=== PATIENT | female | born 1960 | race Caucasian/White ===

== ENCOUNTER 2019-04-23 10:24 | Inpatient (IN) ==
[2019-04-23] MEDS ORDERED: Ipratropium/Albuterol Neb 3 ML IH ONE (10:40)
[2019-04-23] MEDS ORDERED: methylPREDNISolone 125 MG/2 ML VIAL IVP ONE (10:40)
[2019-04-23] MEDS ORDERED: levoFLOXacin 750 MG/150 ML 750 MG/150 ML BAG IVPB ONE (10:40)
[2019-04-23] MEDS ORDERED: Cefepime HCl 1,000 MG in Water for inj. (sterile) 10 ML IVP STA (10:43)
[2019-04-23 11:03] LABS: Basophils % 0.3 %; Eosinophils # 0.4 K/mcL (0.0-0.6); Eosinophils % 4.7 %; Hematocrit 37.2 % (35.3-44.9); Immature Granulocytes % 0.4 % (0-4); Lymphocytes # 1.2 K/mcL (0.6-4.6); Lymphocytes % 13.1 %; Mean Corpuscular HGB Conc 32.3 g/dL (31.6-35.5); Mean Platelet Volume 10.7 fL (9.4-12.4); Monocytes # 0.9 K/mcL (0.0-1.3); Monocytes % 9.5 %; Neutrophils # 6.6 K/mcL (1.6-8.9); Platelet Count 241 K/mcL (140-400); Red Cell Distribution Width 15.1 % (11.5-14.5); White Blood Count 9.2 K/mcL (4.3-11.1)
[2019-04-23 11:03] LABS: VBG HCO3 24 mEq/L (21-27); VBG PCO2 33 mmHg (41-51); VBG PH 7.47 pH Units (7.32-7.42); VBG PO2 197 mmHg (25-50)
--- NOTE | 2019-04-23 11:48 | Emergency Department Note ---
Disposition Clinical Impression: Community acquired pneumonia, Acute respiratory failure with hypoxia Disposition: Admitted As Inpatient Condition: Fair Time of Disposition: 14:24 General Adult HPI - General Chief complaint: ED Shortness of Breath/Dyspnea Stated complaint: Dyspnea Time Seen by Provider: 04/23/19 10:40 Source: patient, family Limitations: no limitations Nursing Notes Reviewed: Yes Vital Signs Reviewed: Yes - History of Present Illness HPI Narrative: 58-year-old female presented to the emergency department for shortness of breath. She was recently was admitted for a pneumonia. Said that she was admitted for approximately 2 days and then sent home on auction. Does have possible history of COPD was on 4 L oxygen at home. She is not been on any steroids. They did not send her home with any antibiotics they said this is all secondary to a viral pneumonia. Patient says that she has continue to get worse having more difficult time breathing well at home. Said that she does smoke her e and there but does not smoke regularly. Said that she slow down her smoking approximately 10 years ago. She has no chest pain. Disposition difficult time breathing is been no fevers or chills. She has not had any coughs or congestion and has not been coughing anything up. Pain Scale: 0 - Related Data Home Medications Medication Instructions Recorded Confirmed FLUoxetine HCl [Prozac] 80 mg PO DAILY 06/06/15 04/23/19 Cyanocobalamin (Vitamin B-12) 50 mcg PO DAILY 06/10/15 04/23/19 [Vitamin B-12] Vitamin D 1,000 mg PO DAILY 06/10/15 04/23/19 Gabapentin [Neurontin] 800 mg PO TID 04/20/19 04/23/19 Ibuprofen [Ibu] 800 mg PO TID 04/20/19 04/23/19 Lamotrigine [Lamictal (Blue)] 100 mg PO BID 04/20/19 04/23/19 Polyethylene Glycol 3350 [MiraLAX] 1 packet PO DAILY 04/20/19 04/23/19 Previous Rx's Medication Instructions Recorded ALPRAZolam [Xanax 0.5 MG Tablet] 0.5 mg PO Q6H PRN 3 Days #12 tablet 04/22/19 Albuterol Sulfate [Proair Hfa] 2 puff IH Q4H PRN #1 inh 04/22/19 Ascorbic Acid [Vitamin C] 500 mg PO DAILY@0630 #30 tablet 04/22/19 Ferrous Sulfate 325 mg PO DAILY@0630 #30 tablet 04/22/19 Allergies Allergy/AdvReac Type Severity Reaction Status Date / Time Penicillins Allergy Hives Verified 04/05/18 12:04 All systems ED: reviewed and negative except as stated. Review of Systems: As Per HPI Past Medical History - Past Medical History Attestation: Yes The following information was validated with the patient. Source: patient Medical history: Reports: arthritis, hypertension, seizures Surgical history: Reports: breast surgery Psychiatric history: Reports: anxiety, depression, panic disorder - Social History Smoking Status: Current every day smoker Smokeless Tobacco Status: No Alcohol use: Reports: none Drug use: Reports: none Physical Exam - General Limitations: no limitations General appearance: alert - Head Head exam: atraumatic, normocephalic, normal inspection - Eye Eye exam: Present: normal appearance, PERRL, EOMI - ENT ENT exam: normal exam, normal oropharynx, mucous membranes moist - Neck Neck exam: Present: normal inspection, full ROM, trachea midline - Chest Chest inspection: Present: normal inspection, symmetric chest wall rise - Respiratory Respiratory exam: Present: respiratory distress, wheezes, prolonged expiratory phase - Cardiovascular Cardiovascular exam: Present: normal rhythm, tachycardia, normal heart sounds - Abdominal Exam Abdominal exam: Present: soft, Non-Tender, normal bowel sounds. Absent: tenderness, distention, guarding, rebound, rigidity - Extremities Exam Extremities exam: Present: normal inspection, full ROM. Absent: tenderness, pedal edema - Back Exam Back exam: Present: normal inspection, full ROM. Absent: tenderness - Neurological Exam Neurological exam: Present: alert, oriented X3 - Skin Skin exam: Present: warm, dry, intact, normal color Course Course Narrative: When patient arrived she was having difficult time breathing was down to 80% while on 4 L Vioxx enough. Due to this we felt patient needed to be on BiPAP. BiPAP was started did give her albuterol treatments as well as she was very wheezy. Also gave her dose of Solu-Medrol. Patient also is recently been admitted to the hospital so we will treat her as hospital acquired pneumonia by giving cefepime, Levaquin, vancomycin. We will also get blood cultures. VBG lactate were also ordered. Other labs were ordered as well. Disposition will be admission for further evaluation Vital Signs Temperature 97.9 F 04/23/19 10:34 Pulse Rate 80 04/23/19 10:34 Respiratory Rate 38 04/23/19 10:34 Blood Pressure 130/85 04/23/19 10:34 O2 Sat by Pulse Oximetry 85 04/23/19 10:34 Temperature 97.9 F 04/23/19 10:34 Pulse Rate 63 04/23/19 14:18 Respiratory Rate 30 04/23/19 14:18 Blood Pressure 150/81 04/23/19 14:18 O2 Sat by Pulse Oximetry 94 04/23/19 14:18 Oxygen Delivery Oxygen Delivery Bipap Medical Decision Making - MDM Narrative Medical decision making narrative: Patient doing well on BiPAP. VBG in no acute findings there is no leukocytosis. CT of the chest did show possible pneumonia or possible pulmonary edema secondary cardiogenic. Did give patient Levaquin, cefepime, vancomycin for antibiotic coverage blood cultures were ordered per patient was never in severe sepsis or septic shock never needed the 30 mL/kg bolus. Spoke with the hospitalist Dr. Rothman who agreed to admit the patient to their service. Patient is admitted in stable condition Chest X-Ray 04/23/19 10:40 IMPRESSION: 1. Diffuse bilateral reticulation of the interstitium. Differential is broad and includes sequela ARDS, diffuse alveolar damage, and atypical infection. D/ / Feng Markham MD / Feng Markham MD Interpreting Provider: Feng Markham MD Chest CTA 04/23/19 11:55 IMPRESSION: No pulmonary emboli are identified. Crazy paving appearance to the lungs bilaterally, which is nonspecific though can be seen in the setting of cardiogenic pulmonary edema, multifocal diffuse interstitial pneumonia, as well as including but not limited to diffuse alveolar proteinosis and Pneumocystis carinii pneumonia. Lymphadenopathy seen in the mediastinum and hilar regions which is felt likely reactive in nature. No spiculated lung mass is identified. Recommend a follow-up CT scan of the chest in 2-3 months after recovery for re-evaluation. D/ / Nishant Stafford MD / Nishant Stafford MD Interpreting Provider: Nishant Stafford MD - Medical Records Medical records reviewed: Yes I reviewed the patient's medical records. - Lab Data Lab results reviewed: Yes I reviewed the patient's lab results. Result diagrams: 04/23/19 10:43 04/23/19 10:43 Lab Results 04/23/19 04/23/19 04/23/19 Range/Units 10:43 10:43 10:43 WBC 9.2 (4.3-11.1) K/mcL RBC 4.00 (3.82-4.97) M/mcL Hgb 12.0 (11.5-15.4) g/dL Hct 37.2 (35.3-44.9) % MCV 93.0 (83.0-100.0) fL MCH 30.0 (28.0-33.3) pg MCHC 32.3 (31.6-35.5) g/dL RDW 15.1 H (11.5-14.5) % Plt Count 241 (140-400) K/mcL MPV 10.7 (9.4-12.4) fL Immature Gran % 0.4 (0-4) % Seg Neutrophils % 72.0 % Lymphocytes % 13.1 % Monocytes % 9.5 % Eosinophils % 4.7 % Basophils % 0.3 % Neutrophils # 6.6 (1.6-8.9) K/mcL Lymphocytes # 1.2 (0.6-4.6) K/mcL Monocytes # 0.9 (0.0-1.3) K/mcL Eosinophils # 0.4 (0.0-0.6) K/mcL Basophils # 0.0 (0.0-0.2) K/mcL D-Dimer 1780 H (0-500) ng/mLFEU VBG pH (7.32-7.42) pH Units VBG pCO2 (41-51) mmHg VBG pO2 (25-50) mmHg VBG HCO3 (21-27) mEq/L Sodium 139 (136-145) mEq/L Potassium 3.8 (3.5-5.1) mEq/L Chloride 106 (98-107) mEq/L Carbon Dioxide 23 (23-29) mEq/L BUN 9 (6-20) mg/dL Creatinine 0.54 L (0.60-1.20) mg/dL Est GFR ( Amer) > 60 (> 60) Est GFR (Non-Af Amer) > 60 (> 60) BUN/Creatinine Ratio 17 (6-26) Glucose 100 (70-105) mg/dL Calculated Osmolality 287 (280-300) Lactic Acid (0.5-2.2) mmol/L Calcium 8.6 (8.6-10.3) mg/dL Troponin I < 0.03 (< 0.04) ng/mL B-Natriuretic Peptide (Less than 100) pg/mL Procalcitonin (0.00-0.15) ng/mL 04/23/19 04/23/19 04/23/19 Range/Units 10:43 10:43 10:43 WBC (4.3-11.1) K/mcL RBC (3.82-4.97) M/mcL Hgb (11.5-15.4) g/dL Hct (35.3-44.9) % MCV (83.0-100.0) fL MCH (28.0-33.3) pg MCHC (31.6-35.5) g/dL RDW (11.5-14.5) % Plt Count (140-400) K/mcL MPV (9.4-12.4) fL Immature Gran % (0-4) % Seg Neutrophils % % Lymphocytes % % Monocytes % % Eosinophils % % Basophils % % Neutrophils # (1.6-8.9) K/mcL Lymphocytes # (0.6-4.6) K/mcL Monocytes # (0.0-1.3) K/mcL Eosinophils # (0.0-0.6) K/mcL Basophils # (0.0-0.2) K/mcL D-Dimer (0-500) ng/mLFEU VBG pH (7.32-7.42) pH Units VBG pCO2 (41-51) mmHg VBG pO2 (25-50) mmHg VBG HCO3 (21-27) mEq/L Sodium (136-145) mEq/L Potassium (3.5-5.1) mEq/L Chloride (98-107) mEq/L Carbon Dioxide (23-29) mEq/L BUN (6-20) mg/dL Creatinine (0.60-1.20) mg/dL Est GFR ( Amer) (> 60) Est GFR (Non-Af Amer) (> 60) BUN/Creatinine Ratio (6-26) Glucose (70-105) mg/dL Calculated Osmolality (280-300) Lactic Acid 1.3 (0.5-2.2) mmol/L Calcium (8.6-10.3) mg/dL Troponin I (< 0.04) ng/mL B-Natriuretic Peptide 184 H (Less than 100) pg/mL Procalcitonin 0.03 (0.00-0.15) ng/mL 04/23/19 Range/Units 11:01 WBC (4.3-11.1) K/mcL RBC (3.82-4.97) M/mcL Hgb (11.5-15.4) g/dL Hct (35.3-44.9) % MCV (83.0-100.0) fL MCH (28.0-33.3) pg MCHC (31.6-35.5) g/dL RDW (11.5-14.5) % Plt Count (140-400) K/mcL MPV (9.4-12.4) fL Immature Gran % (0-4) % Seg Neutrophils % % Lymphocytes % % Monocytes % % Eosinophils % % Basophils % % Neutrophils # (1.6-8.9) K/mcL Lymphocytes # (0.6-4.6) K/mcL Monocytes # (0.0-1.3) K/mcL Eosinophils # (0.0-0.6) K/mcL Basophils # (0.0-0.2) K/mcL D-Dimer (0-500) ng/mLFEU VBG pH 7.47 H (7.32-7.42) pH Units VBG pCO2 33 L (41-51) mmHg VBG pO2 197 H (25-50) mmHg VBG HCO3 24 (21-27) mEq/L Sodium (136-145) mEq/L Potassium (3.5-5.1) mEq/L Chloride (98-107) mEq/L Carbon Dioxide (23-29) mEq/L BUN (6-20) mg/dL Creatinine (0.60-1.20) mg/dL Est GFR ( Amer) (> 60) Est GFR (Non-Af Amer) (> 60) BUN/Creatinine Ratio (6-26) Glucose (70-105) mg/dL Calculated Osmolality (280-300) Lactic Acid (0.5-2.2) mmol/L Calcium (8.6-10.3) mg/dL Troponin I (< 0.04) ng/mL B-Natriuretic Peptide (Less than 100) pg/mL Procalcitonin (0.00-0.15) ng/mL - Radiology Data Radiology results reviewed: Yes I reviewed the patient's radiology results. - EKG Data EKG #1 EKG attestation: Yes I reviewed and interpreted this EKG. EKG results narrative: EKG done at 1034 review myself and the attending shows sinus rhythm rate of 80, ND 143, QRS 91, QTC 457. There is no acute ST changes no acute T-wave changes no other signs of ischemia. No signs of hypertrophy, heart rate, heart block. No WPW/Brugada/HOCM. No changes based on old EKG done 04/20/19 Critical Care Time Critical Care Time: Yes Total Critical Care Time: 35 Attestation: See attestation Attestation Statement - Attestation Attestation: I examined this patient and my medical decision-making was reviewed with the Resident Physician. I agree with the documented findings, disposition and treatment plan as described except to the extent set forth below. Patient did have an EKG, do agree with the resident's interpretation of this EKG. Patient was placed on BiPAP on arrival secondary to hypoxia with nonrebreather. The patient however does not have significant acidosis. The patient however does have a diffuse pneumonia. This is very atypical appearance of a pneumonia. The patient was placed on broad-spectrum antibiotics here in the emergency room. Patient does not have severe respiratory distress after the BiPAP was placed. The patient has diminished breath sounds bilaterally on examination. She has no abdominal pain. Patient this point time is going to be admitted. CRITICAL CARE TIME OF 35 MINUTES PERFORMING THIS INDIVIDUAL OUTSIDE OF SEPARATELY BILLABLE PROCEDURES. THIS INCLUDES BEDSIDE EVALUATION, INTERPRETATION OF EKG AND LAB TESTS AND CONSULTATIONS.
[2019-04-23] MEDS ORDERED: Isovue-370 500 ML BOTTLE IVP ONE (11:55)
[2019-04-23 12:03] LABS: BUN/Creatinine Ratio 17 (6-26); Blood Urea Nitrogen 9 mg/dL (6-20); Calcium 8.6 mg/dL (8.6-10.3); Carbon Dioxide 23 mEq/L (23-29); Chloride 106 mEq/L (98-107); Glucose 100 mg/dL (70-105); Osmolality,Calculated 287 (280-300); Potassium 3.8 mEq/L (3.5-5.1); Sodium 139 mEq/L (136-145); Troponin I < 0.03 ng/mL (< 0.04); eGFR For African Americans > 60 (> 60); eGFR For Non-African Americans > 60 (> 60)
--- NOTE | 2019-04-23 15:26 | Internal Med History&Physical ---
Date of Encounter: 04/23/19 Time of Encounter: 15:26 Internal Medicine - H&P: HPI Chief complaint: shortness of breath History of present illness: Ms. Carranza is a 58 year old female with past medical history of seizures, hypertension, depression, possible COPD came in with complaint of shortness of breath. Patient was discharged from [facility] yesterday with 4 L nasal cannula for possibly underlying COPD. Recent had bilateral infiltrates at that time initially she was given antibiotics however not discharged given Pro calcitonin was negative. She had white count at the time however decreased to 15 on discharge. Respiratory infectious panel was negative. She was prescribed iron, vitamin C and Xanax on discharge on top of her baseline medication. Her l isinopril was stopped. She came back today with complain of increased shortness of breath. She is not on any steroid medication. She reported some smoking ER physician however to be she says she stopped smoking about 15 years ago and smoked for about 20 years about a pack. Has some central chest discomfort since her shortness of breath. Denies any fevers or chills. Had associated cough. Denies any abdominal pain, bowel or bladder complaints. Patient was evaluated in ER and she was given treatment for hospital-acquired pneumonia with cefepime and Levaquin and vancomycin as well as a dose of Solu- Medrol and breathing treatments. CT was obtained because of elevated d-dimer which showed trace keep having pattern with differential including cardiogenic pulmonary edema, interstitial pneumonia, diffuse alveolar proteinosis and Pneumocystis carinii pneumonia. Lymphadenopathy was seen in the mediastinum. Her VBG showed pH of 7.47, PCO2 33, PO2 197. She was kept on BiPAP. She impro milagros with BiPAP and was changed to facial mask. Admission was requested for further management. When patient was admitted with a creatinine ER by me patient was saturating well on simple mask. Had some cough. Breathing has improved and has mild cough and some chest discomfort. Denies any other c omplain as above. Denies any sick contacts. Has 2 dogs at home. 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 Past Med Surg Social Fam HX - Past Medical History Medical history: arthritis, hypertension, seizures Additional medical history: last seizure march 2018 Psychiatric history: anxiety, depression, panic disorder - Past Surgical History Surgical History: breast surgery Additional surgical history: gastric bypass. metal plates to rt side ribs - Social History Smoking Status: Current every day smoker Smokeless Tobacco Status: No Alcohol use: none Drug use: none - Additional Family History Additional family history: No significant cancer hisotory in family, No sick contact Internal Medicine - H&P: Meds FLUoxetine HCl [Prozac] 80 mg PO DAILY 06/06/15 [History] Cyanocobalamin (Vitamin B-12) [Vitamin B-12] 50 mcg PO DAILY 06/10/15 [History] Vitamin D 1,000 mg PO DAILY 06/10/15 [History] Gabapentin [Neurontin] 800 mg PO TID 04/20/19 [History] Ibuprofen [Ibu] 800 mg PO TID 04/20/19 [History] Lamotrigine [Lamictal (Blue)] 100 mg PO BID 04/20/19 [History] Polyethylene Glycol 3350 [MiraLAX] 1 packet PO DAILY 04/20/19 [History] ALPRAZolam [Xanax 0.5 MG Tablet] 0.5 mg PO Q6H PRN 3 Days #12 tablet 04/22/19 [Rx] Albuterol Sulfate [Proair Hfa] 2 puff IH Q4H PRN #1 inh 04/22/19 [Rx] Ascorbic Acid [Vitamin C] 500 mg PO DAILY@0630 #30 tablet 04/22/19 [Rx] Ferrous Sulfate 325 mg PO DAILY@0630 #30 tablet 04/22/19 [Rx] Allergy/AdvReac Type Severity Reaction Status Date / Time Penicillins Allergy Hives Verified 04/05/18 12:04 All Systems PM: A 10-system review of systems was performed and is negative for pertinent fi ndings except as documented above in the HPI. - Constitutional Vitals: Temp Pulse Resp BP Pulse Ox 97.9 F 63 30 150/81 94 04/23/19 10:34 04/23/19 14:18 04/23/19 14:18 04/23/19 14:18 04/23/19 14:18 Exam: Constitutional: Vitals as noted. Conversant. coughing Eyes : Sclera white, conjunctiva clear, no lid lag, PEARLA. ENT : Grossly normal hearing. Oropharyngeal exam unremarkable. No JVD, no cervical lymphadenopathy. no thyromegaly or mass. Respiratory : mild accessory muscle use. rhonchi, wheezing diffusely. Cardiovascular : RRR, +S1, +S2. no murmur, gallop, rubs. No chest wall tenderness GI/Abdominal : Soft, Non-tender, Non-distended, normal bowel sounds, no periton eal signs. no orgenomegaly or mass appreciated. no hernia. Musculoskeletal: no deformity noted. no edema or cyanosis. warm extremities, pulses palpable and symmetrical in UE/LE. no calf tenderness. Neurological: AO X3, CN II-XII grossly intact, grossly normal motor and sensory exam. Skin: No skin rash, lesions or ulcers noted. Pych: Good insight and judgement. Intact memory. AOx3. Internal Med - H&P Results - Labs CBC & Chem 7: 04/23/19 10:43 04/23/19 10:43 Labs: Short CBC 04/23/19 Range/Units 10:43 WBC 9.2 (4.3-11.1) K/mcL Hgb 12.0 (11.5-15.4) g/dL Hct 37.2 (35.3-44.9) % Plt Count 241 (140-400) K/mcL Neutrophils # 6.6 (1.6-8.9) K/mcL BMP 04/23/19 10:43 Sodium 139 Potassium 3.8 Chloride 106 Carbon Dioxide 23 BUN 9 Creatinine 0.54 L Glucose 100 Calcium 8.6 Cardiac Enzymes 04/23/19 Range/Units 10:43 Troponin I < 0.03 (< 0.04) ng/mL - ABG Interpretation ABG results: 04/23/19 11:01 VBG pH 7.47 H VBG pCO2 33 L VBG pO2 197 H VBG HCO3 24 - EKG Data -: EKG Interpreted by Myself EKG shows normal: sinus rhythm - Impressions ITS Impressions Chest X-Ray 04/23/19 10:40 IMPRESSION: 1. Diffuse bilateral reticulation of the interstitium. Differential is broad and includes sequela ARDS, diffuse alveolar damage, and atypical infection. D/ / Feng Markham MD / Feng Markham MD Interpreting Provider: Feng Markham MD Chest CTA 04/23/19 11:55 IMPRESSION: No pulmonary emboli are identified. Crazy paving appearance to the lungs bilaterally, which is nonspecific though can be seen in the setting of cardiogenic pulmonary edema, multifocal diffuse interstitial pneumonia, as well as including but not limited to diffuse alveolar proteinosis and Pneumocystis carinii pneumonia. Lymphadenopathy seen in the mediastinum and hilar regions which is felt likely reactive in nature. No spiculated lung mass is identified. Recommend a follow-up CT scan of the chest in 2-3 months after recovery for re-evaluation. D/ / Nishant Stafford MD / Nishant Stafford MD Interpreting Provider: Nishant Stafford MD - Assessment and Plan (1) Acute respiratory failure with hypoxia Current Visit: Yes Status: Acute Assessment and plan: Patient has crazy pavement appearance on CT scan. Unclear exact etiology. Appears to be less likely be infectious in nature. Patient without white count, negative for calcitonin, recent negative respiratory infectious panel. We will obtain urinary antigen. Patient already received cefepime, Levaquin and vancomycin. We will keep on empiric levaquin for now. Obtain an MRSA screening. Previous blood cultures are negative. Legionella antigen was negative. Will likely de-escalate after pulmonology evaluation. Obtain HIV although she does not have any risk factors Denies any vaping or smoking currently. Patient may have some underlying COPD from her previous smoking habits. Continue patient on supplemental oxygen and as needed BiPAP. Obtain ABG. Obtain echocardiogram to rule out for cardiac causes. Troponin and EKG unremarkable. We will consult pulmonology for additional input and assistance Patient is full code (2) Depression Current Visit: Yes Status: Acute Assessment and plan: Continue home fluoxetine Qualifiers: Depression Type: unspecified Qualified Code(s): F32.9 - Major depressive disorder, single episode, unspecified (3) Hypertension Current Visit: No Status: Acute Assessment and plan: Hold antihypertensives for now. Qualifiers: Hypertension type: essential hypertension Qualified Code(s): I10 - Essential (primary) hypertension (4) Seizure disorder Current Visit: No Status: Acute Assessment and plan: Continue home antiepileptics. - Time Spent With Patient Total time spent is greater than 50% in coordination of care (as documented) at patient's floor/unit and/or counseling patient:
[2019-04-23] MEDS ORDERED: Furosemide 20 MG/2 ML VIAL IVP ONE (15:40)
[2019-04-23 16:14] LABS: ABG Base Excess 1 mEq/L (-2 to 3); ABG HCO3 26 mEq/L (21-27); ABG Oxygen Saturation 96 % (95-98); ABG PCO2 40 mmHg (35-45); ABG PH 7.41 pH Units (7.32-7.45); ABG PO2 83 mmHg (85-104); ABG TCO2 27 mEq/L (20-26)
--- NOTE | 2019-04-23 17:30 | Electrocardiograph Report ---
[address] [place], [place] [address] Test Date: 2019-04-23 Pat Name: Kathia Carranza Department: [id number] Room: [facility] Gender: F Silk Soaker: : 1960 Requested By: Ramiro García Order Number: [id number] Reading MD: Nuris Alexander Measurements Intervals [place] Rate: 80 P: 75 DC: 143 QRS: 48 QRSD: 91 T: 44 QT: 396 QTc: 457 Interpretive Statements Sinus rhythm Left atrial enlargement Electronically Signed On 04-23-2019 17:29:27 EDT by Nuris Alexander
[2019-04-23] MEDS: Acetaminophen 325 MG TABLET PO PRN (17:31)
[2019-04-23] MEDS: Doxycycline 100 MG in 0.9 % Sodium Chloride Mini Bag 100 ML IVPB SCH (18:10)
--- NOTE | 2019-04-23 19:56 | Pulmonology Consult Note ---
Date of Encounter: 04/23/19 Time of Encounter: 17:00 Assessment and Plan (1) Acute respiratory failure with hypoxia Current Visit: Yes Status: Acute Patient presenting with acute hypoxic respiratory failure with significant bilateral groundglass opacities with significant [place] pavement appearance with mediastinal hilar lymphadenopathy as well as likely reactive looks like unresolved interstitial pneumonia. Patient had this findings in the month of December in the CT scan she never followed up with pulmonary at that point. Patient has acceptable oxygenation and ventilation now patient initially on BiPAP then transitioned her to nasal cannula. To continue oxygen supplementation to continue regular bronchodilator, Lasix twice a day. Patient is clinically stable we will repeat the blood gas and energy management specialist. (2) Pneumonitis Current Visit: Yes Status: Acute Patient has significant daytime bilateral groundglass opacities with carzy pavement . appearance which is suggestive of in regards intralobular and lymphatics. The differential diagnosis for groundglass opacities with the patient Appearance the most common cause is a bacterial pneumonia, atypical pneumonia like mycoplasma or Legionella. Other causes that is producing this is a imaging finding as alveolar proteinosis, acute on chronic interstitial lung disease low likelihood for acute interstitial pneumonitis. Patient had both the bilateral upper and lower lobe affected mostly consistent with a diffuse process. This can be due to sarcoidosis presentation. It can be smoking-related interstitial lung disease like respiratory bronchiolitis and desaquamative interstitial pneumonitis. This can be a pattern often nonspecific interstitial pneumonitis or granulomatous pneumonitis acute on chronic hypersensitivity pneumonitis can be a diabetic presentation of sarcoidosis. With a background of lymphade nopathy. We will keep him we will keep her nothing by mouth for possible bronchoscopy if she has adequately treated . (3) Pneumonia Current Visit: Yes Status: Acute Can be due to pneumonia unspecified organs will consider bronchoscopy with bronchial alveolar lavage possible left transbronchial biopsy. To continue the atypical coverage with the doxycycline. Qualifiers: Pneumonia type: due to unspecified organism Laterality: bilateral Lung location: unspecified part of lung Qualified Code(s): J18.9 - Pneumonia, un specified organism History of Present Illness Consult date: 04/23/19 Requesting physician: Radha Bowens Reason for consult: pneumonia, abnormal CXR/CT Chief complaint: shortness of breadth History of present illness: 58-year-old female with past medical history of hypertension, hyperlipidemia, diabetes had bilateral diffuse alveolar infiltrates in month of December patient was given outpatient and antibiotic. Patient coming with worsening shortness of breath and chest pain chest tightness as denies any palpitations syncope. Patient denies any active GERD or neuro symptoms. Patient had this diagnosis of bilateral diffuse interstitial infiltrates in a month of December was sent home on oxygen patient says her shortness of breath almost the came to her baseline episodically she will have worsening shortness of breath patient denies any fever or chills denies any constitutional symptoms denies any headache denies any eye symptoms of skin symptoms patient denies any rash in the skin. Patient denies any active focal neurological deficit pulmonary was consult for acute hypoxic respiratory failure with abnormal CT scan which showed groundglass opa cities and crazy pavement pattern . Past Med Surg Social Fam HX - Past Medical History Medical history: arthritis, hypertension, seizures Additional medical history: last seizure march 2018 Psychiatric history: anxiety, depression, panic disorder - Past Surgical History Surgical History: breast surgery Additional surgical history: gastric bypass. metal plates to rt side ribs - Social History Smoking Status: Current every day smoker Smokeless Tobacco Status: No Alcohol use: none Drug use: none Medications and Allergies FLUoxetine HCl [Prozac] 80 mg PO DAILY 06/06/15 [History] Cholecalciferol (D-3) [Vitamin D] 1,000 unit PO DAILY #0 06/10/15 [History] Cyanocobalamin (Vitamin B-12) [Vitamin B-12] 50 mcg PO DAILY 06/10/15 [History] Gabapentin [Neurontin] 800 mg PO TID 04/20/19 [History] Ibuprofen [Ibu] 800 mg PO TID PRN 04/20/19 [History] Lamotrigine [Lamictal (Blue)] 100 mg PO BID 04/20/19 [History] Ferrous Sulfate 325 mg PO DAILY@0630 #30 tablet 04/22/19 [Rx] Estradiol 2 mg PO DAILY 04/23/19 [History] Lisinopril [Zestril] 20 mg PO DAILY 04/23/19 [History] Trazodone HCl 150 mg PO HS PRN 04/23/19 [History] Allergy/AdvReac Type Severity Reaction Status Date / Time Penicillins Allergy Hives Verified 04/05/18 12:04 All Systems: The remainder of the systems were reviewed and are negative Physical Examination Vital Signs: Vital Signs, Last 4 Hours Temp Pulse Resp BP Pulse Ox 04/23/19 19:52 98.9 F 78 15 124/89 83 Results - Laboratory Findings CBC and BMP: 04/23/19 10:43 04/23/19 10:43 ABG ABG pH 7.41 pH Units (7.32-7.45) 04/23/19 16:10 ABG pCO2 40 mmHg (35-45) 04/23/19 16:10 ABG pO2 83 mmHg (85-104) L 04/23/19 16:10 ABG O2 Saturation 96 % (95-98) 04/23/19 16:10 PT/INR, D-dimer D-Dimer 1780 ng/mLFEU (0-500) H 04/23/19 10:43 Abnormal lab findings: Abnormal lab results RDW 15.1 % (11.5-14.5) H 04/23/19 10:43 D-Dimer 1780 ng/mLFEU (0-500) H 04/23/19 10:43 ABG pO2 83 mmHg (85-104) L 04/23/19 16:10 ABG Total CO2 27 mEq/L (20-26) H 04/23/19 16:10 VBG pH 7.47 pH Units (7.32-7.42) H 04/23/19 11:01 VBG pCO2 33 mmHg (41-51) L 04/23/19 11:01 VBG pO2 197 mmHg (25-50) H 04/23/19 11:01 Creatinine 0.54 mg/dL (0.60-1.20) L 04/23/19 10:43 B-Natriuretic Peptide 184 pg/mL (Less than 100) H 04/23/19 10:43 - Microbiology Findings Microbiology Findings: Microbiology, Last 48 Hours 04/23/19 10:43 Blood Culture - Preliminary Peripheral Venipuncture Culture is incubating and being continuously monitored for growth. Final report to follow. 04/23/19 10:43 Blood Culture - Preliminary Peripheral Venipuncture Culture is incubating and being continuously monitored for growth. Final report to follow. - Clinical Findings Intake & Output: Intake & Output 04/23/19 04/23/19 04/23/19 07:59 15:59 23:59 Intake Total 400 / 410 10 / 410 Balance 400 / 410 10 / 410 Weight 64.9 kg Consult Discharge Plan - Plan Referrals: Damari Ponce, CHARITY [Primary Care Provider] -
[2019-04-23] MEDS ORDERED: *HR* LORazepam 2 MG/ML VIAL IVP ONE (20:05)
[2019-04-23] MEDS: Gabapentin 400 MG CAPSULE PO SCH (20:47)
[2019-04-23] MEDS: lamoTRIgine 100 MG TABLET PO SCH (21:07)
[2019-04-24 04:41] LABS: ABG Base Excess 8 mEq/L (-2 to 3); ABG HCO3 33 mEq/L (21-27); ABG Oxygen Saturation 91 % (95-98); ABG PCO2 45 mmHg (35-45); ABG PH 7.47 pH Units (7.32-7.45); ABG PO2 57 mmHg (85-104); ABG TCO2 34 mEq/L (20-26); Blood Gas PEEP 5 cm H2O
[2019-04-24 04:57] LABS: Basophils % 0.2 %; Eosinophils # 0.1 K/mcL (0.0-0.6); Eosinophils % 0.5 %; Hematocrit 40.8 % (35.3-44.9); Hemoglobin 13.3 g/dL (11.5-15.4); Immature Granulocytes % 0.6 % (0-4); Lymphocytes % 15.5 %; Mean Corpuscular HGB Conc 32.6 g/dL (31.6-35.5); Mean Corpuscular Hemoglobin 29.9 pg (28.0-33.3); Mean Corpuscular Volume 91.7 fL (83.0-100.0); Mean Platelet Volume 11.4 fL (9.4-12.4); Monocytes # 1.2 K/mcL (0.0-1.3); Monocytes % 9.5 %; Neutrophils # 9.5 K/mcL (1.6-8.9); Platelet Count 260 K/mcL (140-400); Red Blood Count 4.45 M/mcL (3.82-4.97); Red Cell Distribution Width 14.6 % (11.5-14.5); Segmented Neutrophils % 73.7 %; White Blood Count 12.9 K/mcL (4.3-11.1)
[2019-04-24 05:04] LABS: INR 1.2; Prothrombin Time 13.6 Seconds (9.4-12.1)
[2019-04-24 05:18] LABS: BUN/Creatinine Ratio 26 (6-26); Blood Urea Nitrogen 16 mg/dL (6-20); Calcium 9.1 mg/dL (8.6-10.3); Carbon Dioxide 28 mEq/L (23-29); Chloride 102 mEq/L (98-107); Glucose 99 mg/dL (70-105); Magnesium 1.7 mg/dL (1.6-2.6); Osmolality,Calculated 291 (280-300); Potassium 3.6 mEq/L (3.5-5.1); Sodium 140 mEq/L (136-145); Troponin I < 0.03 ng/mL (< 0.04); eGFR For African Americans > 60 (> 60); eGFR For Non-African Americans > 60 (> 60)
[2019-04-24] MEDS: Doxycycline 100 MG in 0.9 % Sodium Chloride Mini Bag 100 ML IVPB SCH ×2 (06:06→17:14)
[2019-04-24] MEDS: lamoTRIgine 100 MG TABLET PO SCH ×2 (08:07→20:38)
[2019-04-24] MEDS: Gabapentin 400 MG CAPSULE PO SCH ×3 (08:07→20:38)
[2019-04-24] MEDS: FLUoxetine 20 MG CAPSULE PO SCH (08:08)
[2019-04-24] MEDS ORDERED: methylPREDNISolone 125 MG/2 ML VIAL IVP SCH ×2 (09:00→20:00)
[2019-04-24] MEDS ORDERED: levoFLOXacin 750 MG/150 ML 750 MG/150 ML BAG IVPB SCH (09:00)
--- NOTE | 2019-04-24 09:50 | Pulmonology Progress Note ---
Date of Encounter: 04/24/19 Time of Encounter: 09:00 Assessment and Plan (1) Acute respiratory failure with hypoxia Current Visit: Yes Status: Acute Patient with acute respiratory failure with hypoxia most likely V/Q mismatch is secondary to this chronic interstitial pneumonitis pattern with [place] pavement appearance with groundglass opacities some consolidative opacities. This changes are chronic in the CT scan most likely is inflammatory in the smoking- related interstitial lung disease or eosinophilic pneumonitis or hypersensitivity pneumonitis the workup is pending. (2) Pneumonitis Current Visit: Yes Status: Acute Differential are days climate of interstitial pneumonitis versus nonspecific interstitial pneumonitis versus eosinophilic pneumonitis vs infectious vs pulmonary alveolar proteinosis. Patient will need Bronchoscopy with BAL and transbronchial biopsy . (3) Pneumonia Current Visit: Yes Status: Acute Atypical pneumonia can cause this picture will cover with the atypical antibiotics will do negative for procalcitonin looks like more of any inflammatory pneumonitis. Echocardiogram was grossly normal no evidence of cardiogenic pulmonary edema. Qualifiers: Pneumonia type: due to unspecified organism Laterality: bilateral Lung location: unspecified part of lung Qualified Code(s): J18.9 - Pneumonia, unspecified organism Subjective Principal diagnosis: pneumonitis Interval history: 58-year-old female is here for evaluation for his acute hypoxic respiratory failure secondary to chronic interstitial pneumonitis pattern which was found in December 2018 patient slowly getting better patient is on 5 L nasal cannula. Patient denies any chest pain chest tightness denies any palpitation or syncope patient has some cough And sputum production denies any hemoptysis. Objective PUL Vital signs: Last Vital Signs Temp 98.1 F 04/24/19 07:27 Pulse 57 04/24/19 07:27 Resp 16 04/24/19 07:27 BP 129/86 04/24/19 07:27 Pulse Ox 95 04/24/19 07:27 General appearance: no acute distress Effort: mildly labored Auscultation: bilateral: rales Cardiovascular: regular rate and rhythm Gastrointestinal: normoactive bowel sounds Extremities: no cyanosis, no edema Musculoskeletal: no deformities normal mental status, non-focal exam mood appropriate Results - Laboratory Findings CBC and BMP: 04/24/19 04:18 04/24/19 04:18 ABG ABG pH 7.47 pH Units (7.32-7.45) H 04/24/19 04:38 ABG pCO2 45 mmHg (35-45) 04/24/19 04:38 ABG pO2 57 mmHg (85-104) L 04/24/19 04:38 ABG O2 Saturation 91 % (95-98) L 04/24/19 04:38 PT/INR, D-dimer PT 13.6 Seconds (9.4-12.1) H 04/24/19 04:18 D-Dimer 1780 ng/mLFEU (0-500) H 04/23/19 10:43 Abnormal lab findings: Abnormal lab results WBC 12.9 K/mcL (4.3-11.1) H 04/24/19 04:18 RDW 14.6 % (11.5-14.5) H 04/24/19 04:18 Neutrophils # 9.5 K/mcL (1.6-8.9) H 04/24/19 04:18 PT 13.6 Seconds (9.4-12.1) H 04/24/19 04:18 D-Dimer 1780 ng/mLFEU (0-500) H 04/23/19 10:43 ABG pH 7.47 pH Units (7.32-7.45) H 04/24/19 04:38 ABG pO2 57 mmHg (85-104) L 04/24/19 04:38 ABG HCO3 33 mEq/L (21-27) H 04/24/19 04:38 ABG Total CO2 34 mEq/L (20-26) H 04/24/19 04:38 ABG O2 Saturation 91 % (95-98) L 04/24/19 04:38 ABG Base Excess 8 mEq/L (-2 to 3) H 04/24/19 04:38 VBG pH 7.47 pH Units (7.32-7.42) H 04/23/19 11:01 VBG pCO2 33 mmHg (41-51) L 04/23/19 11:01 VBG pO2 197 mmHg (25-50) H 04/23/19 11:01 Creatinine 0.54 mg/dL (0.60-1.20) L 04/23/19 10:43 C-Reactive Protein 94 mg/L (Less than 10) H 04/24/19 04:18 B-Natriuretic Peptide 184 pg/mL (Less than 100) H 04/23/19 10:43 - Microbiology Findings Microbiology Findings: Microbiology, Last 48 Hours 04/24/19 06:27 Legionella Antigen - Final Urine,Clean Catch 04/24/19 06:27 Streptococcus pneumoniae Antigen (M - Final Urine,Clean Catch 04/23/19 10:43 Blood Culture - Preliminary Peripheral Venipuncture Culture is incubating and being continuously monitored for growth. Final report to follow. 04/23/19 10:43 Blood Culture - Preliminary Peripheral Venipuncture Culture is incubating and being continuously monitored for growth. Final report to follow. - Clinical Findings Intake & Output: Intake & Output 04/23/19 04/24/19 04/24/19 23:59 07:59 15:59 Intake Total 110 / 510 100 / 100 Output Total 750 / 750 Balance 110 / 510 -650 / -650 Weight 64 kg Consult Discharge Plan - Plan Referrals: Damari Ponce, MICROFILM PROCESSOR [Primary Care Provider] -
[2019-04-24] MEDS: MethylPREDNISolone 40 MG/ML VIAL IVP SCH ×3 (11:59→22:57)
--- NOTE | 2019-04-24 13:34 | Internal Med Progress Note ---
Hospitalist Progress Note - Encounter Date of Encounter: 04/24/19 Time of Encounter: 09:32 - Subjective Interval History: Patient seen and examined this morning because her. No acute overnight events. Patient says her breathing improved. Denies any chest pain nausea vomiting diarrhea. Denies any abdominal pain. - Exam Vitals: Temp Pulse Resp BP Pulse Ox 98.1 F 65 16 124/68 91 04/24/19 07:27 04/24/19 11:52 04/24/19 11:52 04/24/19 11:52 04/24/19 11:52 Exam: Constitutional: Vitals as noted. Conversant. coughing Respiratory : mild accessory muscle use. rhonchi, wheezing diffusely. Cardiovascular : RRR, +S1, +S2. no murmur, gallop, rubs. No chest wall tenderness GI/Abdominal : Soft, Non-tender, normal bowel sounds, no peritoneal signs. Musculoskeletal: no edema or cyanosis. warm extremities, pulses palpable and symmetrical in UE/LE. no calf tenderness. Neurological: AO X3, CN II-XII grossly intact, grossly normal motor and sensory exam. Skin: No skin rash, lesions or ulcers noted. - Assessment and Plan (1) Acute respiratory failure with hypoxia Current Visit: Yes Status: Acute (2) Depression Current Visit: Yes Status: Acute (3) Hypertension Current Visit: No Status: Acute (4) Seizure disorder Current Visit: No Status: Acute - Summary of Assessment and Plan Summary of Assessment and Plan: Assessment Acute Acute hypoxic respiratory failure Pneumonitis Chronic Depression HTN Seizure disorder Tobacco use Plan - Patient came with acute hypoxic respiratory failure with crazy pavement appearance on CT scan. Patient improved with BiPAP and Lasix. Pulmonology consulted. Etiology unclear at this point. Troponin and EKG unremarkable. Echocardiogram pending. Appears to be less likely be infectious in nature however will continue doxycycline for now(received cefepime, Levaquin and vancomycin in the ER). Patient without white count, negative for calcitonin, recent negative respiratory infectious panel. Previous blood cultures are negative. Denies any vaping history but does on and off smoke. Continue when necessary BiPAP. ABG this morning is slight respiratory alkalosis. Continue supplemental oxygen for hypoxia. May have some underlying COPD from her previous smoking habits. We will continue patient on Lasix, steroids and empiric antibiotics for now. multiple differential and a desaturation including pneumonia, alveolar proteinosis, interstitial lung disease, interstitial pneumonitis. per Pulmonology smoking-related ILD like respiratory bronchiolitis and his Coumadin interstitial pneumonitis possibility. Bronchoscopy would be delayed as Echo still not reported. - Continue home fluoxetine - Continue home antiepileptics. - EPCD for DVT ppx. Internal Medicine: Result - Labs CBC & Chem 7: 04/24/19 04:18 04/24/19 04:18 Labs: Short CBC 04/24/19 Range/Units 04:18 WBC 12.9 H (4.3-11.1) K/mcL Hgb 13.3 (11.5-15.4) g/dL Hct 40.8 (35.3-44.9) % Plt Count 260 (140-400) K/mcL Neutrophils # 9.5 H (1.6-8.9) K/mcL BMP 04/24/19 04:18 Sodium 140 Potassium 3.6 Chloride 102 Carbon Dioxide 28 BUN 16 Creatinine 0.61 Glucose 99 Calcium 9.1 Cardiac Enzymes 04/24/19 Range/Units 04:18 Troponin I < 0.03 (< 0.04) ng/mL - ABG Interpretation ABG results: ABG ABG pH 7.47 pH Units (7.32-7.45) H 04/24/19 04:38 ABG pCO2 45 mmHg (35-45) 04/24/19 04:38 ABG pO2 57 mmHg (85-104) L 04/24/19 04:38 ABG O2 Saturation 91 % (95-98) L 04/24/19 04:38 PT/INR, D-dimer PT 13.6 Seconds (9.4-12.1) H 04/24/19 04:18 D-Dimer 1780 ng/mLFEU (0-500) H 04/23/19 10:43 - Impressions Impressions Echocardiogram 04/23/19 15:38 Impressions: Technically sub-optimal due to poor echocardiographic windows related to breast implants. LVEF 60-65%. Normal LV chamber size, wall thickness and function. Diastolic probably normal. E/A >0.8, TR velocity < 2.8 m/s, normal LA pressure suggests normal diastolic function. Tissue Doppler suboptimal, obscured visualization of MV annulus. Normal right ventricular structure and function. No evidence of pulmonary hypertension. No significant valvular dysfunction. Findings: Study Quality * Technically sub-optimal due to poor echocardiographic windows related to breast implants. ECG Findings * Normal sinus rhythm. Left Ventricle * LVEF 60-65%. * Normal LV chamber size, wall thickness, and function. * Diastolic probably normal. E/A >0.8, TR velocity < 2.8 m/s, normal LA pressure suggests normal diastolic function. Tissue Doppler suboptimal, obscured visiualization of MV annulus. Right Ventricle * Normal right ventricular structure and function. Left Atrium * Left atrium is not well visualized. Right Atrium * Right atrium is not well visualized. Interatrial Septum * Interatrial septum not well evaluated. Aortic Valve * Trileaflet aortic valve. * Mildly sclerotic aortic valve leaflets. * No aortic regurgitation. * No aortic stenosis. Mitral Valve * Normal mitral valve structure and function. * No mitral regurgitation. * No mitral stenosis. Tricuspid Valve * Normal tricuspid valve structure and function. * Trace tricuspid regurgitation. * No evidence of pulmonary hypertension. Pulmonic Valve * Normal pulmonic valve structure and function. * Trace pulmonic regurgitation. Aorta * Normally sized aortic root. Pericardium * There is a trivial pericardial effusion present. IVC * Normal IVC dimensions and inspiratory collapse. Pulmonary Artery * Normal visualized portions of the main pulmonary artery. Consult Discharge Plan - Plan Referrals: Damari Ponce, OPERATIONAL ASSISTANT [Primary Care Provider] - (2) Depression Qualifiers: Depression Type: unspecified Qualified Code(s): F32.9 - Major depressive disorder, single episode, unspecified (3) Hypertension Qualifiers: Hypertension type: essential hypertension Qualified Code(s): I10 - Essential (primary) hypertension
[2019-04-24] MEDS ORDERED: Furosemide 20 MG/2 ML VIAL IVP ONE (15:00)
[2019-04-25] MEDS: Furosemide 20 MG/2 ML VIAL IVP SCH ×3 (00:27→21:40)
[2019-04-25] MEDS: Doxycycline 100 MG in 0.9 % Sodium Chloride Mini Bag 100 ML IVPB SCH ×2 (06:25→17:19)
--- NOTE | 2019-04-25 08:06 | Internal Med Progress Note ---
Hospitalist Progress Note - Encounter Date of Encounter: 04/25/19 Time of Encounter: 08:06 - Subjective Interval History: Patient seen and examined this morning at bedside. No acute overnight events. Patient breathing improved. Denies any chest pain nausea vomiting or diarrhea. - Exam Vitals: Temp Pulse Resp BP Pulse Ox 98.1 F 65 18 112/70 95 04/24/19 23:16 04/25/19 07:13 04/25/19 07:13 04/25/19 07:13 04/25/19 07:13 Exam: Constitutional: Vitals as noted. Conversant. Respiratory : mild accessory muscle use. rhonchi, wheezing diffusely. Cardiovascular : RRR, +S1, +S2. no murmur, gallop, rubs. No chest wall tenderness GI/Abdominal : Soft, Non-tender, normal bowel sounds, no peritoneal signs. Musculoskeletal: no edema or cyanosis. warm extremities, pulses palpable and symmetrical in UE/LE. no calf tenderness. Neurological: AO X3, CN II-XII grossly intact, grossly normal motor and sensory exam. Skin: No skin rash, lesions or ulcers noted. - Assessment and Plan (1) Acute respiratory failure with hypoxia Current Visit: Yes Status: Acute (2) Depression Current Visit: Yes Status: Acute (3) Hypertension Current Visit: No Status: Acute (4) Seizure disorder Current Visit: No Status: Acute - Summary of Assessment and Plan Summary of Assessment and Plan: Assessment Acute Acute hypoxic respiratory failure Pneumonitis Respiratory alkalosis Chronic Depression HTN Seizure disorder Tobacco use Plan - Patient came with acute hypoxic respiratory failure with crazy pavement appearance on CT scan. Patient improved with BiPAP, steroid and Lasix. Pulmonology following. Etiology unclear at this point. Troponin and EKG unremarkable. Echocardiogram with preserved EF. Appears to be less likely be infectious in nature however will continue doxycycline for now per pulmonology(received cefepime, Levaquin and vancomycin in the ER). Patient without white count, negative procalcitonin, recent negative respiratory infectious panel. Previous blood cultures are negative. Denies any vaping history but does on and off smoke. Continue pnr BiPAP and supplemental oxygen for hypoxia. May have some underlying COPD from her previous smoking habits. c/w Lasix, steroids and empiric antibiotics for now. per Pulmonology possibly smoking-related ILD or eosinophillic pnemonitis or hypersensitivity pneumonitis. Plan for bronchscopy today. Pending histoplasma, VINNIE, anca ab, fungal and mycoplasma testing. - Continue home fluoxetine - Continue home antiepileptics. - EPCD for DVT ppx. - Time Spent with Patient Total time spent is greater than 50% in coordination of care (as documented) at patient's floor/unit and/or counseling patient: Internal Medicine: Result - Labs CBC & Chem 7: 04/24/19 04:18 04/24/19 04:18 - ABG Interpretation ABG results: ABG ABG pH 7.47 pH Units (7.32-7.45) H 04/24/19 04:38 ABG pCO2 45 mmHg (35-45) 04/24/19 04:38 ABG pO2 57 mmHg (85-104) L 04/24/19 04:38 ABG O2 Saturation 91 % (95-98) L 04/24/19 04:38 PT/INR, D-dimer PT 13.6 Seconds (9.4-12.1) H 04/24/19 04:18 D-Dimer 1780 ng/mLFEU (0-500) H 04/23/19 10:43 - Impressions Impressions Echocardiogram 04/23/19 15:38 Impressions: Technically sub-optimal due to poor echocardiographic windows related to breast implants. LVEF 60-65%. Normal LV chamber size, wall thickness and function. Diastolic probably normal. E/A >0.8, TR velocity < 2.8 m/s, normal LA pressure suggests normal diastolic function. Tissue Doppler suboptimal, obscured visualization of MV annulus. Normal right ventricular structure and function. No evidence of pulmonary hypertension. No significant valvular dysfunction. Findings: Study Quality * Technically sub-optimal due to poor echocardiographic windows related to breast implants. ECG Findings * Normal sinus rhythm. Left Ventricle * LVEF 60-65%. * Normal LV chamber size, wall thickness, and function. * Diastolic probably normal. E/A >0.8, TR velocity < 2.8 m/s, normal LA pressure suggests normal diastolic function. Tissue Doppler suboptimal, obscured visiualization of MV annulus. Right Ventricle * Normal right ventricular structure and function. Left Atrium * Left atrium is not well visualized. Right Atrium * Right atrium is not well visualized. Interatrial Septum * Interatrial septum not well evaluated. Aortic Valve * Trileaflet aortic valve. * Mildly sclerotic aortic valve leaflets. * No aortic regurgitation. * No aortic stenosis. Mitral Valve * Normal mitral valve structure and function. * No mitral regurgitation. * No mitral stenosis. Tricuspid Valve * Normal tricuspid valve structure and function. * Trace tricuspid regurgitation. * No evidence of pulmonary hypertension. Pulmonic Valve * Normal pulmonic valve structure and function. * Trace pulmonic regurgitation. Aorta * Normally sized aortic root. Pericardium * There is a trivial pericardial effusion present. IVC * Normal IVC dimensions and inspiratory collapse. Pulmonary Artery * Normal visualized portions of the main pulmonary artery. Consult Discharge Plan - Plan Referrals: Damari Ponce, PHYSICAL TESTING SUPERVISOR [Primary Care Provider] - (2) Depression Qualifiers: Depression Type: unspecified Qualified Code(s): F32.9 - Major depressive disorder, single episode, unspecified (3) Hypertension Qualifiers: Hypertension type: essential hypertension Qualified Code(s): I10 - Essential (primary) hypertension
[2019-04-25] MEDS: FLUoxetine 20 MG CAPSULE PO SCH (08:57)
[2019-04-25] MEDS: MethylPREDNISolone 40 MG/ML VIAL IVP SCH ×2 (08:57→15:51)
[2019-04-25] MEDS: Gabapentin 400 MG CAPSULE PO SCH ×3 (08:57→21:41)
[2019-04-25] MEDS: lamoTRIgine 100 MG TABLET PO SCH ×2 (08:57→21:41)
[2019-04-25] MEDS ORDERED: Lidocaine Viscous Oral Soln 15 ML SOLUTION ONE (09:58)
--- NOTE | 2019-04-25 10:24 | Anesthesia Evaluation PreOp ---
Date of Encounter: 04/25/19 Time of Encounter: 10:22 - Past History Planned Operation: Bronchoscopy Cardiac History: HTN Pulmonary History: Former smoker ("quit 2 weeks ago"), Smoker (<1ppd x 40yrs. 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: Seizures (Hx Grand Mal Sz [last Sz 03/2018]), Other (Anxiety/Depression/Panic disorder) Other Medical History: Denies Any Significant HX Anesthesia History: No Prior Anesthetic Complications, Past Anesthesia (Gastric Bypass, Breast augmentation, Umbilical hernia, Tika, "Metal plates to R-rib cage") Alcohol Use: none Drug use: none Medications and Allergies FLUoxetine HCl [Prozac] 80 mg PO DAILY 06/06/15 [History] Cholecalciferol (D-3) [Vitamin D] 1,000 unit PO DAILY #0 06/10/15 [History] Cyanocobalamin (Vitamin B-12) [Vitamin B-12] 50 mcg PO DAILY 06/10/15 [History] Gabapentin [Neurontin] 800 mg PO TID 04/20/19 [History] Ibuprofen [Ibu] 800 mg PO TID PRN 04/20/19 [History] Lamotrigine [Lamictal (Blue)] 100 mg PO BID 04/20/19 [History] Ferrous Sulfate 325 mg PO DAILY@0630 #30 tablet 04/22/19 [Rx] Estradiol 2 mg PO DAILY 04/23/19 [History] Lisinopril [Zestril] 20 mg PO DAILY 04/23/19 [History] Trazodone HCl 150 mg PO HS PRN 04/23/19 [History] Allergy/AdvReac Type Severity Reaction Status Date / Time Penicillins Allergy Hives Verified 04/05/18 12:04 - Meds/Allergy Pre-op Review Medications Reviewed: Yes Allergies Reviewed: Yes Beta Blockers on Current Med List: No Anesthesia Results - Labs 04/24/19 04:18 04/24/19 04:18 Impressions Chest X-Ray 04/23/19 10:40 IMPRESSION: 1. Diffuse bilateral reticulation of the interstitium. Differential is broad and includes sequela ARDS, diffuse alveolar damage, and atypical infection. D/ / Feng Markham MD / Feng Markham MD Interpreting Provider: Feng Markham MD Chest CTA 04/23/19 11:55 IMPRESSION: No pulmonary emboli are identified. Crazy paving appearance to the lungs bilaterally, which is nonspecific though can be seen in the setting of cardiogenic pulmonary edema, multifocal diffuse interstitial pneumonia, as well as including but not limited to diffuse alveolar proteinosis and Pneumocystis carinii pneumonia. Lymphadenopathy seen in the mediastinum and hilar regions which is felt likely reactive in nature. No spiculated lung mass is identified. Recommend a follow-up CT scan of the chest in 2-3 months after recovery for re-evaluation. D/ / Nishant Stafford MD / Nishant Stafford MD Interpreting Provider: Nishant Stafford MD Echocardiogram 04/23/19 15:38 Impressions: Technically sub-optimal due to poor echocardiographic windows related to breast implants. LVEF 60-65%. Normal LV chamber size, wall thickness and function. Diastolic probably normal. E/A >0.8, TR velocity < 2.8 m/s, normal LA pressure suggests normal diastolic function. Tissue Doppler suboptimal, obscured visualization of MV annulus. Normal right ventricular structure and function. No evidence of pulmonary hypertension. No significant valvular dysfunction. Findings: Study Quality * Technically sub-optimal due to poor echocardiographic windows related to breast implants. ECG Findings * Normal sinus rhythm. Left Ventricle * LVEF 60-65%. * Normal LV chamber size, wall thickness, and function. * Diastolic probably normal. E/A >0.8, TR velocity < 2.8 m/s, normal LA pressure suggests normal diastolic function. Tissue Doppler suboptimal, obscured visiualization of MV annulus. Right Ventricle * Normal right ventricular structure and function. Left Atrium * Left atrium is not well visualized. Right Atrium * Right atrium is not well visualized. Interatrial Septum * Interatrial septum not well evaluated. Aortic Valve * Trileaflet aortic valve. * Mildly sclerotic aortic valve leaflets. * No aortic regurgitation. * No aortic stenosis. Mitral Valve * Normal mitral valve structure and function. * No mitral regurgitation. * No mitral stenosis. Tricuspid Valve * Normal tricuspid valve structure and function. * Trace tricuspid regurgitation. * No evidence of pulmonary hypertension. Pulmonic Valve * Normal pulmonic valve structure and function. * Trace pulmonic regurgitation. Aorta * Normally sized aortic root. Pericardium * There is a trivial pericardial effusion present. IVC * Normal IVC dimensions and inspiratory collapse. Pulmonary Artery * Normal visualized portions of the main pulmonary artery. - Imaging EKG: image reviewed (80bpm - Sinus rhythm Left atrial enlargement Electronically Signed On 04-23-2019 17:29:27 EDT by Nuris Alexander) Chest x-ray: report reviewed Anesthesia Exam Vital Signs Temp Pulse Resp BP Pulse Ox 04/25/19 10:07 18 92 04/25/19 07:13 65 18 112/70 95 04/24/19 23:16 98.1 F 54 17 126/91 91 04/24/19 20:17 91 04/24/19 19:31 98.2 F 72 17 123/74 92 04/24/19 16:06 98.1 F 79 18 123/85 93 04/24/19 11:52 65 16 124/68 91 Intake and Output 04/24/19 04/25/19 04/25/19 23:59 07:59 15:59 Intake Total 300 / 640 100 / 100 Output Total 350 / 350 Balance 300 / -110 -350 / -250 100 / -250 Intake: IV Fluids 100 / 200 100 / 100 Doxycycline 100 MG In 0.9 % 100 / 200 100 / 100 Sodium Chloride (Mini-Bag +) 100 ML @ 100 mls/hr IVPB Q12HR [facility] Rx#:[id number] Oral 200 / 440 Output: Urine 350 / 350 Other: Weight 70.8 kg Height: 5'2" Weight: 156# BMI = 28.5 NPO (# of Hours): MNOc - HEENT Pupil (Motor): Pupils equal, EOMI Mallampati: II Teeth: Missing Denture Type: Upper: Partial Oral Opening: Greater than 3 - FO[employer] AND [employer] OUTLETS MANAGER LOC: Oriented FO[employer] OUTLETS MANAGER Motor: Normal RUE, Normal LUE, Normal RLE, Normal LLE, Normal Face [employer] OUTLETS MANAGER Sensory: Normal: RUE, LUE, RLE, LLE, Face - Cardiac Rhythm: Regular Murmur: None - Pulmonary Breath Sounds: bilateral Clear Respiratory Effort: Symmetrical Anesthesia Assess/Plan ASA Score: 3 (Sz disorder, Anxiety/Depression/Panic disorder, HTN, Smoker?) Anes Supervising Prov Stmt: Pt seen/evaluated, R&B Discussed, questions answered and consent obtained - MD Ion
[2019-04-25] MEDS ORDERED: *HR* Succinylcholine 200 MG/10 ML VIAL IVP ONE (10:27)
[2019-04-25] MEDS ORDERED: Dexamethasone 4 MG/ML VIAL ONE (10:27)
[2019-04-25] MEDS ORDERED: Lidocaine -MPF 2% 2 ML VIAL ONE ×2 (10:27→11:14)
[2019-04-25] MEDS ORDERED: Lidocaine -MPF 4% 5 ML AMPUL ONE (10:27)
[2019-04-25] MEDS ORDERED: Ondansetron 4 MG/2 ML VIAL ONE (10:27)
[2019-04-25] MEDS ORDERED: *HR* Propofol 200 MG/20 ML VIAL IVP ONE (10:31)
[2019-04-25] MEDS ORDERED: *HR* FentaNYL (PF) 100 MCG/2 ML VIAL ONE (10:31)
[2019-04-25] MEDS ORDERED: Ipratropium/Albuterol Neb 3 ML ONE ×2 (10:48→11:32)
[2019-04-25] MEDS ORDERED: *HR* Midazolam HCl 2 MG/2 ML VIAL ONE (10:50)
--- NOTE | 2019-04-25 12:08 | Anesthesia Evaluation Post Op ---
Date of Encounter: 04/25/19 Time of Encounter: 12:05 - Vital Signs Vital Signs: Vital Signs/O2 Sat/Glucose, Most Current Temp Pulse Resp BP Pulse Ox 04/25/19 11:56 95 17 109/73 94 04/25/19 11:46 112 20 112/78 92 04/25/19 11:36 97.6 F 80 22 98/64 95 04/25/19 10:35 73 18 118/81 95 04/25/19 10:07 18 92 - Lungs Lungs: Wheezes (Faint wheezes improved with DuoNeb tx), Treatment Ordered - Airway Airway: Non-obstructed - Cardiovascular Regular Rate, Baseline Rhythm - Mental Status Mental Status: Alert & Oriented, Answers Appropriately - Pain Pain Scale: 0 Pain Scale used: Numeric (1 - 10) - Nausea Vomiting Nausea Vomiting: Not Present - Hydration Hydration: Ice chips, Has not voided - Discharge PostOp Status: Transfer Patient to floor Anes Supervising Prov Stmt: Pt seen/evaluated, VSS and has met criteria for discharge to floor. - MD Ion
[2019-04-25 13:11] LABS: BUN/Creatinine Ratio 32 (6-26); Blood Urea Nitrogen 26 mg/dL (6-20); Carbon Dioxide 31 mEq/L (23-29); Chloride 96 mEq/L (98-107); Glucose 142 mg/dL (70-105); Osmolality,Calculated 293 (280-300); Potassium 3.5 mEq/L (3.5-5.1); Sodium 138 mEq/L (136-145); eGFR For African Americans > 60 (> 60); eGFR For Non-African Americans > 60 (> 60)
[2019-04-25] MEDS: Acetaminophen 325 MG TABLET PO PRN (13:29)
[2019-04-25] MEDS ORDERED: traMADol 50 MG TABLET PO ONE (15:15)
[2019-04-25] MEDS: Doxycycline 100 MG CAPSULE PO SCH (21:41)
--- NOTE | 2019-04-25 21:53 | Pulmonology Progress Note ---
Date of Encounter: 04/25/19 Time of Encounter: 08:00 Assessment and Plan (1) Acute respiratory failure with hypoxia Current Visit: Yes Status: Acute Patient with acute respiratory failure with hypoxia most likely V/Q mismatch is secondary to this chronic interstitial pneumonitis pattern with Matt pavement appearance with groundglass opacities some consolidative opacities. This changes are chronic in the CT scan most likely is inflammatory in the smoking- related interstitial lung disease or eosinophilic pneumonitis or hypersensitivity pneumonitis the workup is pending. 04/25 we will proceed with bronchoscopy with BAL and transbronchial biopsy will monitor her 24 hours and send her home possibly on oxygen please do a walking pulse oximetry before discharge. (2) Pneumonitis Current Visit: Yes Status: Acute Differential are days climate of interstitial pneumonitis versus nonspecific interstitial pneumonitis versus eosinophilic pneumonitis vs infectious vs pulmonary alveolar proteinosis. Patient will need Bronchoscopy with BAL and transbronchial biopsy . 04/25 patient will need high dose steroids prednisone 40 mg daily till she sees me in clinic. Please schedule in 2 weeks outpatient follow-up. (3) Pneumonia Current Visit: Yes Status: Acute Atypical pneumonia can cause this picture will cover with the atypical antibiotics will do negative for procalcitonin looks like more of any inflammatory pneumonitis. Echocardiogram was grossly normal no evidence of cardiogenic pulmonary edema. Based on initial BAL Gram stain we can de-escalate antibiotics. To sent home on 14 days of doxycycline if BAL does not grow any significant organism. Qualifiers: Pneumonia type: due to unspecified organism Laterality: bilateral Lung location: unspecified part of lung Qualified Code(s): J18.9 - Pneumonia, unspecified organism Subjective Principal diagnosis: pneumonitis Interval history: 58-year-old female is here for evaluation for his acute hypoxic respiratory failure secondary to chronic interstitial pneumonitis pattern which was found in December 2018 patient slowly getting better patient is on 5 L nasal cannula. Patient denies any chest pain chest tightness denies any palpitation or syncope patient has some cough And sputum production denies any hemoptysis. 04/25 patient says she is doing a lot better wants to go home and told to the bronchoscopy procedure today before she goes home tomorrow possibly might need exercise oxygen because of the extent of parenchymal disease he will need oxygen going home patient denies any chest pain chest tightness denies any palpitation or syncope has some cough and sputum production. Objective PUL Vital signs: Last Vital Signs Temp 97.8 F 04/25/19 19:03 Pulse 67 04/25/19 19:03 Resp 15 04/25/19 19:03 BP 115/79 04/25/19 19:03 Pulse Ox 92 04/25/19 19:03 General appearance: no acute distress Eyes: nonicteric Effort: mildly labored Auscultation: bilateral: rales Cardiovascular: regular rate and rhythm Gastrointestinal: normoactive bowel sounds Extremities: no cyanosis, no edema Musculoskeletal: no deformities Gait: normal gait normal mental status, non-focal exam mood appropriate Results - Laboratory Findings CBC and BMP: 04/24/19 04:18 04/25/19 12:42 ABG ABG pH 7.47 pH Units (7.32-7.45) H 04/24/19 04:38 ABG pCO2 45 mmHg (35-45) 04/24/19 04:38 ABG pO2 57 mmHg (85-104) L 04/24/19 04:38 ABG O2 Saturation 91 % (95-98) L 04/24/19 04:38 PT/INR, D-dimer PT 13.6 Seconds (9.4-12.1) H 04/24/19 04:18 D-Dimer 1780 ng/mLFEU (0-500) H 04/23/19 10:43 Abnormal lab findings: Abnormal lab results WBC 12.9 K/mcL (4.3-11.1) H 04/24/19 04:18 RDW 14.6 % (11.5-14.5) H 04/24/19 04:18 Neutrophils # 9.5 K/mcL (1.6-8.9) H 04/24/19 04:18 PT 13.6 Seconds (9.4-12.1) H 04/24/19 04:18 D-Dimer 1780 ng/mLFEU (0-500) H 04/23/19 10:43 ABG pH 7.47 pH Units (7.32-7.45) H 04/24/19 04:38 ABG pO2 57 mmHg (85-104) L 04/24/19 04:38 ABG HCO3 33 mEq/L (21-27) H 04/24/19 04:38 ABG Total CO2 34 mEq/L (20-26) H 04/24/19 04:38 ABG O2 Saturation 91 % (95-98) L 04/24/19 04:38 ABG Base Excess 8 mEq/L (-2 to 3) H 04/24/19 04:38 VBG pH 7.47 pH Units (7.32-7.42) H 04/23/19 11:01 VBG pCO2 33 mmHg (41-51) L 04/23/19 11:01 VBG pO2 197 mmHg (25-50) H 04/23/19 11:01 Chloride 96 mEq/L (98-107) L 04/25/19 12:42 Carbon Dioxide 31 mEq/L (23-29) H 04/25/19 12:42 BUN 26 mg/dL (6-20) H 04/25/19 12:42 Creatinine 0.54 mg/dL (0.60-1.20) L 04/23/19 10:43 BUN/Creatinine Ratio 32 (6-26) H 04/25/19 12:42 Glucose 142 mg/dL (70-105) H 04/25/19 12:42 C-Reactive Protein 94 mg/L (Less than 10) H 04/24/19 04:18 B-Natriuretic Peptide 184 pg/mL (Less than 100) H 04/23/19 10:43 - Microbiology Findings Microbiology Findings: Microbiology, Last 48 Hours 04/24/19 06:27 Legionella Antigen - Final Urine,Clean Catch 04/24/19 06:27 Streptococcus pneumoniae Antigen (M - Final Urine,Clean Catch - Clinical Findings Intake & Output: Intake & Output 04/25/19 04/25/19 04/25/19 07:59 15:59 23:59 Intake Total 100 / 101 1 / 101 Output Total 350 / 1150 800 / 1150 0 / 1150 Balance -350 / -1049 -700 / -1049 1 / -1049 Consult Discharge Plan - Plan Referrals: Damari Ponce, OVERSEAMER [Primary Care Provider] -
[2019-04-25] MEDS: Furosemide 20 MG TABLET PO SCH (23:57)
[2019-04-26 07:22] VITALS: BP 130/85
[2019-04-26] MEDS ORDERED: predniSONE 20 MG TABLET PO SCH (09:00)
[2019-04-26] MEDS: Gabapentin 400 MG CAPSULE PO SCH (09:03)
[2019-04-26] MEDS: FLUoxetine 20 MG CAPSULE PO SCH (09:04)
[2019-04-26] MEDS: lamoTRIgine 100 MG TABLET PO SCH (09:04)
[2019-04-26] MEDS: Furosemide 20 MG TABLET PO SCH (09:04)
[2019-04-26] MEDS: Doxycycline 100 MG CAPSULE PO SCH (09:04)
[2019-04-26 09:33] LABS: Serine Protease-3 Antibody 0 AU/mL (0-19)
--- NOTE | 2019-04-26 09:56 | Discharge Summary ---
- NOTES TO OUTPATIENT PROVIDER Notes to Outpatient Provider: Follow-up with pulmonology as outpatient Orders not resulted at time of discharge: Pending orders 04/23/19 10:43 Culture,Blood [BC] Stat 04/23/19 20:09 Culture,Sputum with Gram Stain [RM] Routine 04/24/19 04:18 VINNIE IgG NATALIA rflx IFA Routine Mycoplasma pneumoniae IgG IgM AM 0400 04/24/19 06:27 Histoplasma galactomannan,Ur Routine 04/24/19 10:19 Hypersensitivity Pneumonitis 1 Routine 04/24/19 22:28 Respiratory Infection Panel [MOLMIC] Routine 04/25/19 11:16 AFB Culture, Respiratory [TB] Routine Cell Count w Diff, Body Fluid [BF] Routine Culture,Respiratory,w Gram St [RM] Routine Fungal Culture [MYC] Routine Gram Stain [RM] Routine Legionella Culture [RM] Routine Resp.Virus Panel,Body Fl Routine 04/25/19 11:18 AFB Culture, Respiratory [TB] Routine Cell Count w Diff, Body Fluid [BF] Routine Culture,Respiratory,w Gram St [RM] Routine Fungal Culture [MYC] Routine Gram Stain [RM] Routine Legionella Culture [RM] Routine Resp.Virus Panel,Body Fl Routine 04/25/19 11:34 Cytology [PTH] Routine Date of Encounter: 04/26/19 Time of Encounter: 08:15 - Discharge Diagnosis (1) Acute respiratory failure with hypoxia Priority: Primary Status: Acute (2) Pneumonitis Priority: Secondary Status: Acute (3) Pneumonia Priority: Secondary Status: Acute Qualifiers: Pneumonia type: due to unspecified organism Laterality: bilateral Lung location: unspecified part of lung Qualified Code(s): J18.9 - Pneumonia, unspecified organism (4) Depression Priority: Secondary Status: Acute Qualifiers: Depression Type: unspecified Qualified Code(s): F32.9 - Major depressive disorder, single episode, unspecified (5) Hypertension Priority: Secondary Status: Acute Qualifiers: Hypertension type: essential hypertension Qualified Code(s): I10 - Essential (primary) hypertension (6) Seizure disorder Priority: Secondary Status: Acute Hospital course: Ms. Carranza is a 58 year old female with history of seizure, tobacco abuse, who was admitted for acute hypoxic respiratory failure secondary to PNA. There was also a concern for a component of smoking-related ILD, eosinophilic pneumonitis, or hypersensitivity pneumonitis given the paving appearance on CT chest. Clinically improved with doxycycline, steroids, bronchodilators, and underwent bronchoscopy on 04/25 which showed unresolving bilateral infiltrates with right lower lobe secretions. Managed in consultation with pulmonology and patient will be discharged on a total of 14 days of doxycycline and prednisone 40 mg daily until pulm follow-up as outpatient. Discharge discussed with: patient, nurse, security and privacy consultant - Time Spent with Patient Total time spent providing and/or coordinating discharge services: 33 mins - Discharge Medications Prescriptions: New Doxycycline 100 mg PO BID 10 Days #20 capsule predniSONE [PredniSONE] 40 mg PO DAILY 14 Days #28 tablet Albuterol Sulfate [Proventil Inhaler] 2 puff IH [id number] PRN #1 inhaler PRN Reason: Shortness Of Breath/Wheezing Continued Estradiol 2 mg PO DAILY Trazodone HCl 150 mg PO HS PRN PRN Reason: Sleep FLUoxetine HCl [Prozac] 80 mg PO DAILY Cholecalciferol (D-3) [Vitamin D] 1,000 unit PO DAILY #0 Cyanocobalamin (Vitamin B-12) [Vitamin B-12] 50 mcg PO DAILY Ibuprofen [Ibu] 800 mg PO TID PRN PRN Reason: Mild Pain Gabapentin [Neurontin] 800 mg PO TID Lamotrigine [Lamictal (Blue)] 100 mg PO BID Ferrous Sulfate 325 mg PO DAILY@0630 #30 tablet Discontinued Lisinopril [Zestril] 20 mg PO DAILY Home Medications: FLUoxetine HCl [Prozac] 80 mg PO DAILY 06/06/15 [History] Cholecalciferol (D-3) [Vitamin D] 1,000 unit PO DAILY #0 06/10/15 [History] Cyanocobalamin (Vitamin B-12) [Vitamin B-12] 50 mcg PO DAILY 06/10/15 [History] Gabapentin [Neurontin] 800 mg PO TID 04/20/19 [History] Ibuprofen [Ibu] 800 mg PO TID PRN 04/20/19 [History] Lamotrigine [Lamictal (Blue)] 100 mg PO BID 04/20/19 [History] Ferrous Sulfate 325 mg PO DAILY@0630 #30 tablet 04/22/19 [Rx] Estradiol 2 mg PO DAILY 04/23/19 [History] Trazodone HCl 150 mg PO HS PRN 04/23/19 [History] Albuterol Sulfate [Proventil Inhaler] 2 puff IH [id number] PRN #1 inhaler 04/26/19 [Rx] Doxycycline 100 mg PO BID 10 Days #20 capsule 04/26/19 [Rx] predniSONE [PredniSONE] 40 mg PO DAILY 14 Days #28 tablet 04/26/19 [Rx] Allergies/Adverse Reactions: Allergy/AdvReac Type Severity Reaction Status Date / Time Penicillins Allergy Hives Verified 04/05/18 12:04 Date of admission: 04/23/19 16:26 Primary care physician: Damari Ponce CNP Consults: 04/23/19 15:40 Consult to Pulmonology [CONS] Routine Consulting Provider: [facility] Reason for Consult: ARDS Call Completed: Yes 04/23/19 16:20 Consult to Nutrition [CONS] Routine Comment: Consulting Provider: NUTRITION Reason for Dietary Consult: MST Score - Constitutional Vitals: Temp Pulse Resp BP Pulse Ox 97.8 F 63 16 130/85 93 04/26/19 07:18 04/26/19 07:18 04/26/19 07:18 04/26/19 07:18 04/26/19 07:18 Exam: Constitutional: Vitals as noted. Conversant. Respiratory : minimal wheezing bilaterally with occasional fine rales, most prominent at the lung bases Cardiovascular : RRR, +S1, +S2. GI/Abdominal : Soft, Non-tender Musculoskeletal: no edema or cyanosis. warm extremities. Neurological: non-focal Skin: No skin rash, lesions or ulcers noted. - Patient Status Disposition: Home, Self-Care Condition: Fair Functional capacity at discharge: independent ambulation Overall status at discharge: patient is progressing back to baseline - Discharge Instructions Instructions: Acute Respiratory Distress Syndrome (DC), Pneumonia (DC), Depression (DC), Chronic Hypertension (DC) Follow Up With: Damari Ponce CNP [Primary Care Provider] - Zoë Lawrence MD [Partnered Physician] - Additional Instructions: Follow-up with pulmonology in 2 weeks - Diet and Activity Activity: resume usual activities as tolerated Diet: regular diet
--- NOTE | 2019-04-26 15:07 | Pulmonology Progress Note ---
Date of Encounter: 04/26/19 Time of Encounter: 11:30 Assessment and Plan (1) Acute respiratory failure with hypoxia Status: Acute Patient with acute respiratory failure with hypoxia most likely V/Q mismatch is secondary to this chronic interstitial pneumonitis pattern with Matt pavement appearance with groundglass opacities some consolidative opacities. This changes are chronic in the CT scan most likely is inflammatory in the smoking- related interstitial lung disease or eosinophilic pneumonitis or hypersensitivity pneumonitis the workup is pending. 04/25 we will proceed with bronchoscopy with BAL and transbronchial biopsy will monitor her 24 hours and send her home possibly on oxygen please do a walking pulse oximetry before discharge. 04/26 patient had a bronchoscopy with BAL with transbronchial biopsy yesterday had transbronchial biopsy and right middle lobe and right lower lobe. (2) Pneumonitis Status: Acute Differential are days climate of interstitial pneumonitis versus nonspecific interstitial pneumonitis versus eosinophilic pneumonitis vs infectious vs pulmonary alveolar proteinosis. Patient will need Bronchoscopy with BAL and transbronchial biopsy . 04/25 patient will need high dose steroids prednisone 40 mg daily till she sees me in clinic. Please schedule in 2 weeks outpatient follow-up. 04/26 patient to continue prednisone 40 mg daily and I will follow-up with her in 2 weeks. (3) Pneumonia Status: Acute Atypical pneumonia can cause this picture will cover with the atypical antibiotics will do negative for procalcitonin looks like more of any inflamm atory pneumonitis. Echocardiogram was grossly normal no evidence of cardiogenic pulmonary edema. Based on initial BAL Gram stain we can de-escalate antibiotics. To sent home on 14 days of doxycycline if BAL does not grow any significant organism. 04/26 to send her home on doxycycline for 2 weeks. Qualifiers: Pneumonia type: due to unspecified organism Laterality: bilateral Lung location: unspecified part of lung Qualified Code(s): J18.9 - Pneumonia, unspecified organism Subjective Principal diagnosis: pneumonitis Interval history: 58-year-old female is here for evaluation for his acute hypoxic respiratory f ailure secondary to chronic interstitial pneumonitis pattern which was found in December 2018 patient slowly getting better patient is on 5 L nasal cannula. Patient denies any chest pain chest tightness denies any palpitation or syncope patient has some cough And sputum production denies any hemoptysis. 04/25 patient says she is doing a lot better wants to go home and told to the bronchoscopy procedure today before she goes home tomorrow possibly might need exercise oxygen because of the extent of parenchymal disease he will need oxygen going home patient denies any chest pain chest tightness denies any palpitation or syncope has some cough and sputum production. 04/26 patient had a bronchoscopy yesterday underwent a had transbronchial biopsies in the right middle lobe and right lower lobe chest x-ray was stable patient says her symptoms slowly coming back to baseline has some shortness of b reath on exertion has exercise oxygen requirements are stable needing oxygen on exertion patient denies any chest pain chest tightness denies any palpitation or syncope. Objective PUL Vital signs: Last Vital Signs Temp 97.8 F 04/26/19 07:18 Pulse 63 04/26/19 07:18 Resp 16 04/26/19 07:18 BP 130/85 04/26/19 07:18 Pulse Ox 97 04/26/19 10:46 General appearance: no acute distress Eyes: nonicteric ENT: oropharynx moist Auscultation: bilateral: rales Cardiovascular: regular rate and rhythm Gastrointestinal: normoactive bowel sounds Extremities: no edema normal mental status, non-focal exam mood appropriate Results - Laboratory Findings CBC and BMP: 04/24/19 04:18 04/25/19 12:42 ABG ABG pH 7.47 pH Units (7.32-7.45) H 04/24/19 04:38 ABG pCO2 45 mmHg (35-45) 04/24/19 04:38 ABG pO2 57 mmHg (85-104) L 04/24/19 04:38 ABG O2 Saturation 91 % (95-98) L 04/24/19 04:38 PT/INR, D-dimer PT 13.6 Seconds (9.4-12.1) H 04/24/19 04:18 D-Dimer 1780 ng/mLFEU (0-500) H 04/23/19 10:43 Abnormal lab findings: Abnormal lab results WBC 12.9 K/mcL (4.3-11.1) H 04/24/19 04:18 RDW 14.6 % (11.5-14.5) H 04/24/19 04:18 Neutrophils # 9.5 K/mcL (1.6-8.9) H 04/24/19 04:18 PT 13.6 Seconds (9.4-12.1) H 04/24/19 04:18 D-Dimer 1780 ng/mLFEU (0-500) H 04/23/19 10:43 ABG pH 7.47 pH Units (7.32-7.45) H 04/24/19 04:38 ABG pO2 57 mmHg (85-104) L 04/24/19 04:38 ABG HCO3 33 mEq/L (21-27) H 04/24/19 04:38 ABG Total CO2 34 mEq/L (20-26) H 04/24/19 04:38 ABG O2 Saturation 91 % (95-98) L 04/24/19 04:38 ABG Base Excess 8 mEq/L (-2 to 3) H 04/24/19 04:38 VBG pH 7.47 pH Units (7.32-7.42) H 04/23/19 11:01 VBG pCO2 33 mmHg (41-51) L 04/23/19 11:01 VBG pO2 197 mmHg (25-50) H 04/23/19 11:01 Chloride 96 mEq/L (98-107) L 04/25/19 12:42 Carbon Dioxide 31 mEq/L (23-29) H 04/25/19 12:42 BUN 26 mg/dL (6-20) H 04/25/19 12:42 Creatinine 0.54 mg/dL (0.60-1.20) L 04/23/19 10:43 BUN/Creatinine Ratio 32 (6-26) H 04/25/19 12:42 Glucose 142 mg/dL (70-105) H 04/25/19 12:42 C-Reactive Protein 94 mg/L (Less than 10) H 04/24/19 04:18 B-Natriuretic Peptide 184 pg/mL (Less than 100) H 04/23/19 10:43 - Clinical Findings Intake & Output: Intake & Output 04/25/19 04/26/19 04/26/19 23:59 07:59 15:59 Intake Total 0 / 0 Output Total 0 1150 Balance 1 1049 0 / 0 Weight 70.6 kg Consult Discharge Plan - Plan Instructions: Doxycycline (By mouth), Albuterol (By breathing), Prednisone (By mouth), Acute Respiratory Distress Syndrome (DC), Depression (DC), Chronic Hypertension (DC), Pneumonia (DC) Additional Instructions: Follow-up with pulmonology in 2 weeks Referrals: Damari Ponce CNP [Primary Care Provider] - (Office will follow up with phone call to schedule appointment) Zoë Lawrence MD [Partnered Physician] - Prescriptions: Doxycycline 100 mg PO BID 10 Days #20 capsule Prescription Printed predniSONE [PredniSONE] 40 mg PO DAILY 14 Days #28 tablet Prescription Printed Albuterol Sulfate [Proventil Inhaler] 2 puff IH [id number] PRN #1 inhaler PRN Reason: Shortness Of Breath/Wheezing Prescription Printed
--- NOTE | 2019-04-26 15:14 | Procedure Note ---
Date of procedure: 04/25/19 Pre-op diagnosis: Pneumonitis Post-op diagnosis: same Procedure: This is an addendum to the bronchoscopy report. On top off BAL patient also had transbronchial biopsies both in the right middle lobe and right lower lobe in the right lower lobe 5 passes were done and in the right middle lobe of 4 passes were then post procedure chest x-ray did not show any evidence of pneumothorax. Anesthesia: GETA Was there an training assistant present: No Estimated blood loss (cc): 0 Specimen: Transbronchial biopsy lung specimen Pathology: other Condition: stable Disposition: floor
[2019-04-26 15:31] LABS: Source of Body Fluid LLL BAL; Source of Body Fluid RML BAL
[2019-04-26 18:04] LABS: Appearance of Body Fluid Clear (Clear)
[2019-04-26 18:05] LABS: Volume of Body Fluid 14 mL
[2019-04-26 18:18] LABS: Appearance of Body Fluid Clear (Clear); Volume of Body Fluid 14 mL
[2019-04-27] MEDS ORDERED: predniSONE 20 MG TABLET PO SCH (09:00)
[2019-04-27 09:55] LABS: ANA IgG by ELISA NONE DETECTED (None Detected)
[2019-04-27 10:10] LABS: Mycoplasma pneumoniae IgG 0.29 U/L (<=0.09)
[2019-04-29 09:53] LABS: Influenza A PCR Body Fluid NOT DETECTED; Influenza B PCR Body Fluid NOT DETECTED; RVP Body Fluid Source BAL LLL; RVP Body Fluid Source BAL RLL
[2019-04-29 10:44] LABS: RSV PCR Body Fluid NOT DETECTED
[2019-04-30 10:50] LABS: T. vulgaris 1 Ab Precipitin NONE DETECTED (None Detected)
== END 2019-04-26 13:06 | disposition home or self-care (01) | DRG 196 ==
LOC: EMEROOARM 10:24 → 2NENU 10:24 → SUATTDRO 16:26
PROVIDERS: ADMIT Internal Medicine; ATTEND Internal Medicine
PROC: ENDOLBX (2019-04-25 10:30)

== ENCOUNTER 2019-05-18 09:24 | Inpatient (IN) ==
[2019-05-18] MEDS ORDERED: Isovue-370 500 ML BOTTLE IVP ONE (09:39)
[2019-05-18] MEDS ORDERED: methylPREDNISolone 125 MG/2 ML VIAL IVP ONE (09:39)
[2019-05-18] MEDS ORDERED: Ipratropium/Albuterol Neb 3 ML IH ONE (09:39)
[2019-05-18 10:34] LABS: Basophils % 0.2 %; Eosinophils # 0.3 K/mcL (0.0-0.6); Eosinophils % 2.4 %; Hematocrit 41.3 % (35.3-44.9); Hemoglobin 13.1 g/dL (11.5-15.4); Immature Granulocytes % 0.4 % (0-4); Lymphocytes # 1.3 K/mcL (0.6-4.6); Lymphocytes % 9.8 %; Mean Corpuscular HGB Conc 31.7 g/dL (31.6-35.5); Mean Corpuscular Hemoglobin 30.2 pg (28.0-33.3); Mean Corpuscular Volume 95.2 fL (83.0-100.0); Mean Platelet Volume 10.3 fL (9.4-12.4); Monocytes # 1.2 K/mcL (0.0-1.3); Platelet Count 230 K/mcL (140-400); Red Blood Count 4.34 M/mcL (3.82-4.97); Red Cell Distribution Width 15.1 % (11.5-14.5); Segmented Neutrophils % 78.2 %; White Blood Count 12.8 K/mcL (4.3-11.1)
[2019-05-18 10:54] LABS: Prothrombin Time 11.9 Seconds (9.4-12.1)
[2019-05-18] MEDS ORDERED: levoFLOXacin 500 MG/100 ML 500 MG/100 ML BAG IVPB ONE (11:04)
[2019-05-18] MEDS ORDERED: cefTRIAXone 1,000 MG in Water for inj. (sterile) 10 ML IVP ONE (11:05)
[2019-05-18 11:08] LABS: BUN/Creatinine Ratio 15 (6-26); Blood Urea Nitrogen 11 mg/dL (6-20); Calcium 8.9 mg/dL (8.6-10.3); Carbon Dioxide 25 mEq/L (23-29); Chloride 106 mEq/L (98-107); Glucose 129 mg/dL (70-105); Osmolality,Calculated 287 (280-300); Potassium 3.6 mEq/L (3.5-5.1); Sodium 138 mEq/L (136-145); eGFR For African Americans > 60 (> 60); eGFR For Non-African Americans > 60 (> 60)
[2019-05-18] MEDS ORDERED: *HR* FentaNYL (PF) 100 MCG/2 ML VIAL IVP ONE (12:43)
[2019-05-18] MEDS ORDERED: Ondansetron 4 MG/2 ML VIAL IVP PRN (14:38)
[2019-05-18] MEDS ORDERED: Albuterol 2.5 MG/3 ML NEBULIZER IH PRN (14:38)
[2019-05-18] MEDS ORDERED: traZODone 50 MG TABLET PO PRN (14:59)
[2019-05-18] MEDS ORDERED: Furosemide 20 MG/2 ML VIAL IVP ONE (15:11)
[2019-05-18] MEDS: Albuterol 2.5 MG/3 ML NEBULIZER IH SCH ×3 (15:40→23:36)
[2019-05-18] MEDS: Gabapentin 400 MG CAPSULE PO SCH ×2 (16:35→20:43)
[2019-05-18] MEDS: Acetaminophen 325 MG TABLET PO PRN (17:08)
[2019-05-18] MEDS: *HR* Heparin 5,000 UNIT/ML VIAL SQ SCH (17:09)
[2019-05-18] MEDS: MethylPREDNISolone 40 MG/ML VIAL IVP SCH (20:43)
[2019-05-18] MEDS: lamoTRIgine 100 MG TABLET PO SCH (20:43)
[2019-05-18] MEDS ORDERED: GuaiFENesin Liq 200 MG/10 ML UDC PO PRN (21:25)
[2019-05-19 03:48] LABS: Basophils % 0.1 %; Hemoglobin 11.7 g/dL (11.5-15.4); Immature Platelets 3.6 % (1.1-6.1); Lymphocytes # 0.6 K/mcL (0.6-4.6); Lymphocytes % 4.6 %; Mean Corpuscular HGB Conc 31.6 g/dL (31.6-35.5); Mean Corpuscular Hemoglobin 30.2 pg (28.0-33.3); Mean Corpuscular Volume 95.6 fL (83.0-100.0); Mean Platelet Volume 10.5 fL (9.4-12.4); Monocytes # 0.5 K/mcL (0.0-1.3); Neutrophils # 12.1 K/mcL (1.6-8.9); Platelet Count 225 K/mcL (140-400); Red Blood Count 3.87 M/mcL (3.82-4.97); Red Cell Distribution Width 15.1 % (11.5-14.5); Segmented Neutrophils % 90.3 %; White Blood Count 13.4 K/mcL (4.3-11.1)
[2019-05-19] MEDS: Albuterol 2.5 MG/3 ML NEBULIZER IH SCH ×6 (04:07→23:32)
[2019-05-19 04:13] LABS: BUN/Creatinine Ratio 21 (6-26); Blood Urea Nitrogen 13 mg/dL (6-20); Calcium 9.1 mg/dL (8.6-10.3); Carbon Dioxide 25 mEq/L (23-29); Chloride 108 mEq/L (98-107); Glucose 143 mg/dL (70-105); Osmolality,Calculated 291 (280-300); Potassium 4.7 mEq/L (3.5-5.1); Sodium 139 mEq/L (136-145); eGFR For African Americans > 60 (> 60); eGFR For Non-African Americans > 60 (> 60)
[2019-05-19] MEDS: *HR* Heparin 5,000 UNIT/ML VIAL SQ SCH ×2 (05:30→17:08)
[2019-05-19] MEDS: Azithromycin 500 MG in 0.9 % Sodium Chloride 250 ML IVPB SCH (09:10)
[2019-05-19] MEDS: lamoTRIgine 100 MG TABLET PO SCH ×2 (09:10→19:57)
[2019-05-19] MEDS: MethylPREDNISolone 40 MG/ML VIAL IVP SCH ×2 (09:10→19:57)
[2019-05-19] MEDS: FLUoxetine 20 MG CAPSULE PO SCH (09:10)
[2019-05-19] MEDS: Gabapentin 400 MG CAPSULE PO SCH ×4 (09:10→19:57)
[2019-05-19] MEDS: Acetaminophen 325 MG TABLET PO PRN (12:20)
[2019-05-19] MEDS: *HR* OxyCODONE/APAP 5/325 TABLET PO PRN (17:58)
[2019-05-19] MEDS: Budesonide/Formoterol 160/4.5 1 PUFF INH IH SCH (19:28)
[2019-05-20 01:56] LABS: Hematocrit 35.7 % (35.3-44.9); Mean Corpuscular HGB Conc 31.4 g/dL (31.6-35.5); Mean Corpuscular Hemoglobin 29.9 pg (28.0-33.3); Mean Corpuscular Volume 95.2 fL (83.0-100.0); Mean Platelet Volume 10.4 fL (9.4-12.4); Platelet Count 228 K/mcL (140-400); Red Blood Count 3.75 M/mcL (3.82-4.97); Red Cell Distribution Width 15.4 % (11.5-14.5); White Blood Count 11.1 K/mcL (4.3-11.1)
[2019-05-20 01:57] LABS: Hemoglobin 11.2 g/dL (11.5-15.4)
[2019-05-20 02:17] LABS: BUN/Creatinine Ratio 28 (6-26); Blood Urea Nitrogen 18 mg/dL (6-20); Calcium 8.8 mg/dL (8.6-10.3); Carbon Dioxide 24 mEq/L (23-29); Chloride 104 mEq/L (98-107); Glucose 191 mg/dL (70-105); Osmolality,Calculated 291 (280-300); Potassium 4.4 mEq/L (3.5-5.1); Sodium 137 mEq/L (136-145); eGFR For African Americans > 60 (> 60); eGFR For Non-African Americans > 60 (> 60)
[2019-05-20] MEDS: *HR* OxyCODONE/APAP 5/325 TABLET PO PRN ×5 (02:46→23:58)
[2019-05-20] MEDS: Albuterol 2.5 MG/3 ML NEBULIZER IH SCH ×6 (03:20→23:32)
[2019-05-20] MEDS: *HR* Heparin 5,000 UNIT/ML VIAL SQ SCH (05:48)
[2019-05-20] MEDS: Gabapentin 400 MG CAPSULE PO SCH ×4 (07:30→20:06)
[2019-05-20] MEDS: FLUoxetine 20 MG CAPSULE PO SCH (07:31)
[2019-05-20] MEDS: Azithromycin 500 MG in 0.9 % Sodium Chloride 250 ML IVPB SCH (07:31)
[2019-05-20] MEDS: lamoTRIgine 100 MG TABLET PO SCH ×2 (07:31→20:05)
[2019-05-20] MEDS: MethylPREDNISolone 40 MG/ML VIAL IVP SCH (07:31)
[2019-05-20] MEDS: Budesonide/Formoterol 160/4.5 1 PUFF INH IH SCH ×2 (07:34→19:58)
[2019-05-21] MEDS: Albuterol 2.5 MG/3 ML NEBULIZER IH SCH ×6 (03:36→23:03)
[2019-05-21] MEDS: *HR* OxyCODONE/APAP 5/325 TABLET PO PRN ×3 (04:44→20:32)
[2019-05-21 06:32] LABS: Hematocrit 35.3 % (35.3-44.9); Hemoglobin 10.9 g/dL (11.5-15.4); Mean Corpuscular HGB Conc 30.9 g/dL (31.6-35.5); Mean Corpuscular Hemoglobin 29.9 pg (28.0-33.3); Mean Platelet Volume 9.5 fL (9.4-12.4); Platelet Count 245 K/mcL (140-400); Red Blood Count 3.64 M/mcL (3.82-4.97); Red Cell Distribution Width 15.4 % (11.5-14.5); White Blood Count 6.1 K/mcL (4.3-11.1)
[2019-05-21 06:45] LABS: BUN/Creatinine Ratio 25 (6-26); Blood Urea Nitrogen 16 mg/dL (6-20); Carbon Dioxide 29 mEq/L (23-29); Chloride 106 mEq/L (98-107); Potassium 3.9 mEq/L (3.5-5.1); Sodium 143 mEq/L (136-145); eGFR For African Americans > 60 (> 60); eGFR For Non-African Americans > 60 (> 60)
[2019-05-21 06:46] LABS: Calcium 8.7 mg/dL (8.6-10.3); Glucose 92 mg/dL (70-105); Osmolality,Calculated 297 (280-300)
[2019-05-21] MEDS: Budesonide/Formoterol 160/4.5 1 PUFF INH IH SCH ×2 (07:40→20:37)
[2019-05-21] MEDS: Gabapentin 400 MG CAPSULE PO SCH ×4 (08:25→20:23)
[2019-05-21] MEDS: FLUoxetine 20 MG CAPSULE PO SCH (08:25)
[2019-05-21] MEDS: lamoTRIgine 100 MG TABLET PO SCH ×2 (08:25→20:23)
[2019-05-21] MEDS ORDERED: *HR* FentaNYL (PF) 100 MCG/2 ML VIAL ONE (08:57)
[2019-05-21] MEDS ORDERED: *HR* Propofol 200 MG/20 ML VIAL IVP ONE (08:57)
[2019-05-21] MEDS ORDERED: Dexamethasone 4 MG/ML VIAL ONE (09:00)
[2019-05-21] MEDS ORDERED: *HR* Succinylcholine 200 MG/10 ML VIAL IVP ONE (09:00)
[2019-05-21] MEDS ORDERED: *HR* Rocuronium Bromide 50 MG/5 ML VIAL ONE ×2 (09:00→12:06)
[2019-05-21] MEDS ORDERED: Lidocaine -MPF 2% 2 ML VIAL ONE (09:00)
[2019-05-21] MEDS ORDERED: Ondansetron 4 MG/2 ML VIAL ONE (09:00)
[2019-05-21] MEDS ORDERED: *HR* Midazolam HCl 2 MG/2 ML VIAL ONE (09:01)
[2019-05-21] MEDS ORDERED: *HR* OxyCODONE Immed Rel 5 MG TABLET PO PRN (10:07)
[2019-05-21] MEDS ORDERED: Albuterol 2.5 MG/3 ML NEBULIZER IH PRN ×3 (10:07→13:19)
[2019-05-21] MEDS ORDERED: Ondansetron 4 MG/2 ML VIAL IVP ONE ×2 (10:07→13:19)
[2019-05-21] MEDS ORDERED: *HR* Promethazine 25 MG/ML VIAL IVP PRN ×2 (10:07→13:19)
[2019-05-21] MEDS ORDERED: Acetaminophen IV 1,000 MG/100 ML INFUS..BTL IVPB ONE ×2 (10:10→13:19)
[2019-05-21] MEDS ORDERED: Albuterol 2.5 MG/3 ML NEBULIZER IH ONE ×2 (10:10→13:19)
[2019-05-21] MEDS ORDERED: *HR* PHENYLEPHRINE 1,000 MCG/10 ML SYRINGE IVP ONE (12:06)
[2019-05-21] MEDS ORDERED: Doxycycline 100 MG in 0.9 % Sodium Chloride Mini Bag 100 ML IVPB ONE ×2 (12:10→13:19)
[2019-05-21] MEDS: *HR* HYDROmorphone (PF) 1 MG/ML SYRINGE IVP PRN ×4 (12:35→12:50)
[2019-05-21] MEDS ORDERED: Ringers Solution, Lactated 1,000 ML ONE (12:41)
[2019-05-21] MEDS ORDERED: Ondansetron 4 MG/2 ML VIAL IVP PRN (13:19)
[2019-05-21] MEDS ORDERED: 0.9 % Sodium Chloride 1,000 ML IVC SCH (13:19)
[2019-05-21] MEDS ORDERED: Acetaminophen 325 MG TABLET PO PRN (13:19)
[2019-05-21] MEDS ORDERED: GuaiFENesin Liq 200 MG/10 ML UDC PO PRN (13:19)
[2019-05-21] MEDS: *HR* Heparin 5,000 UNIT/ML VIAL SQ SCH ×2 (14:25→20:33)
[2019-05-21] MEDS ORDERED: Ketorolac 15 MG/ML VIAL IVP ONE (15:22)
[2019-05-21] MEDS: traZODone 50 MG TABLET PO PRN (21:30)
[2019-05-22] MEDS: *HR* OxyCODONE/APAP 5/325 TABLET PO PRN ×5 (00:36→20:01)
[2019-05-22] MEDS ORDERED: traMADol 50 MG TABLET PO PRN (00:52)
[2019-05-22] MEDS ORDERED: *HR* Promethazine 25 MG/ML VIAL IVP ONE (00:53)
[2019-05-22] MEDS ORDERED: Haloperidol Lactate 5 MG/ML VIAL IVP ONE (00:53)
[2019-05-22] MEDS: Albuterol 2.5 MG/3 ML NEBULIZER IH SCH ×5 (03:58→20:21)
[2019-05-22 04:29] LABS: Hematocrit 36.4 % (35.3-44.9); Hemoglobin 11.2 g/dL (11.5-15.4); Mean Corpuscular HGB Conc 30.8 g/dL (31.6-35.5); Mean Corpuscular Hemoglobin 29.6 pg (28.0-33.3); Mean Corpuscular Volume 96.3 fL (83.0-100.0); Mean Platelet Volume 9.8 fL (9.4-12.4); Platelet Count 282 K/mcL (140-400); Red Blood Count 3.78 M/mcL (3.82-4.97); Red Cell Distribution Width 15.3 % (11.5-14.5); White Blood Count 10.6 K/mcL (4.3-11.1)
[2019-05-22 04:49] LABS: BUN/Creatinine Ratio 19 (6-26); Blood Urea Nitrogen 12 mg/dL (6-20); Calcium 8.7 mg/dL (8.6-10.3); Carbon Dioxide 29 mEq/L (23-29); Chloride 104 mEq/L (98-107); Glucose 116 mg/dL (70-105); Osmolality,Calculated 289 (280-300); Potassium 4.2 mEq/L (3.5-5.1); Sodium 139 mEq/L (136-145); eGFR For African Americans > 60 (> 60); eGFR For Non-African Americans > 60 (> 60)
[2019-05-22] MEDS: *HR* Heparin 5,000 UNIT/ML VIAL SQ SCH ×3 (05:26→20:59)
[2019-05-22] MEDS ORDERED: Ketorolac 15 MG/ML VIAL IVP ONE (06:53)
[2019-05-22] MEDS: Budesonide/Formoterol 160/4.5 1 PUFF INH IH SCH ×2 (07:14→20:21)
[2019-05-22] MEDS: FLUoxetine 20 MG CAPSULE PO SCH (08:07)
[2019-05-22] MEDS: Gabapentin 400 MG CAPSULE PO SCH ×4 (08:08→20:59)
[2019-05-22] MEDS: lamoTRIgine 100 MG TABLET PO SCH ×2 (08:09→20:59)
[2019-05-22] MEDS ORDERED: *HR* HYDROmorphone (PF) 1 MG/ML SYRINGE IVP ONE (08:53)
[2019-05-22] MEDS: Ketorolac 15 MG/ML VIAL IVP SCH ×4 (09:58→23:44)
[2019-05-22] MEDS ORDERED: *HR* LORazepam 0.5 MG TABLET PO ONE (17:36)
[2019-05-23] MEDS: Albuterol 2.5 MG/3 ML NEBULIZER IH SCH ×7 (00:05→23:52)
[2019-05-23] MEDS ORDERED: *HR* LORazepam 2 MG/ML VIAL IVP ONE (00:38)
[2019-05-23] MEDS: *HR* OxyCODONE/APAP 5/325 TABLET PO PRN ×6 (03:14→20:59)
[2019-05-23 05:07] LABS: Hematocrit 35.2 % (35.3-44.9); Hemoglobin 11.2 g/dL (11.5-15.4); Mean Corpuscular HGB Conc 31.8 g/dL (31.6-35.5); Mean Corpuscular Hemoglobin 29.8 pg (28.0-33.3); Mean Corpuscular Volume 93.6 fL (83.0-100.0); Mean Platelet Volume 9.8 fL (9.4-12.4); Platelet Count 270 K/mcL (140-400); Red Blood Count 3.76 M/mcL (3.82-4.97); Red Cell Distribution Width 15.1 % (11.5-14.5); White Blood Count 9.7 K/mcL (4.3-11.1)
[2019-05-23 05:25] LABS: BUN/Creatinine Ratio 22 (6-26); Blood Urea Nitrogen 15 mg/dL (6-20); Calcium 8.8 mg/dL (8.6-10.3); Carbon Dioxide 32 mEq/L (23-29); Chloride 101 mEq/L (98-107); Glucose 98 mg/dL (70-105); Osmolality,Calculated 287 (280-300); Potassium 4.3 mEq/L (3.5-5.1); Sodium 138 mEq/L (136-145); eGFR For African Americans > 60 (> 60); eGFR For Non-African Americans > 60 (> 60)
[2019-05-23] MEDS: *HR* Heparin 5,000 UNIT/ML VIAL SQ SCH ×3 (05:29→21:00)
[2019-05-23] MEDS: Ketorolac 15 MG/ML VIAL IVP SCH ×4 (05:29→23:48)
[2019-05-23] MEDS: Budesonide/Formoterol 160/4.5 1 PUFF INH IH SCH ×2 (07:22→19:49)
[2019-05-23] MEDS: lamoTRIgine 100 MG TABLET PO SCH ×2 (08:31→21:00)
[2019-05-23] MEDS: Gabapentin 400 MG CAPSULE PO SCH ×4 (08:31→21:00)
[2019-05-23] MEDS: FLUoxetine 20 MG CAPSULE PO SCH (08:32)
[2019-05-23] MEDS: traZODone 50 MG TABLET PO PRN (20:59)
[2019-05-24] MEDS: Albuterol 2.5 MG/3 ML NEBULIZER IH SCH ×4 (04:12→15:35)
[2019-05-24] MEDS: *HR* OxyCODONE/APAP 5/325 TABLET PO PRN ×2 (04:59→09:33)
[2019-05-24 05:12] LABS: Hematocrit 32.5 % (35.3-44.9); Hemoglobin 10.2 g/dL (11.5-15.4); Mean Corpuscular HGB Conc 31.4 g/dL (31.6-35.5); Mean Corpuscular Hemoglobin 30.3 pg (28.0-33.3); Mean Corpuscular Volume 96.4 fL (83.0-100.0); Mean Platelet Volume 9.3 fL (9.4-12.4); Platelet Count 269 K/mcL (140-400); Red Blood Count 3.37 M/mcL (3.82-4.97); Red Cell Distribution Width 15.2 % (11.5-14.5); White Blood Count 7.5 K/mcL (4.3-11.1)
[2019-05-24 05:31] LABS: BUN/Creatinine Ratio 14 (6-26); Blood Urea Nitrogen 10 mg/dL (6-20); Calcium 8.8 mg/dL (8.6-10.3); Carbon Dioxide 35 mEq/L (23-29); Chloride 102 mEq/L (98-107); Glucose 107 mg/dL (70-105); Osmolality,Calculated 288 (280-300); Potassium 4.2 mEq/L (3.5-5.1); Sodium 139 mEq/L (136-145); eGFR For African Americans > 60 (> 60); eGFR For Non-African Americans > 60 (> 60)
[2019-05-24] MEDS: *HR* Heparin 5,000 UNIT/ML VIAL SQ SCH ×2 (05:40→14:23)
[2019-05-24] MEDS: Ketorolac 15 MG/ML VIAL IVP SCH ×2 (05:40→14:22)
[2019-05-24] MEDS: Budesonide/Formoterol 160/4.5 1 PUFF INH IH SCH (07:44)
[2019-05-24] MEDS: lamoTRIgine 100 MG TABLET PO SCH (09:27)
[2019-05-24] MEDS: FLUoxetine 20 MG CAPSULE PO SCH (09:28)
[2019-05-24] MEDS: Gabapentin 400 MG CAPSULE PO SCH ×2 (09:28→14:49)
[2019-05-24 15:47] VITALS: BP 131/85
== END 2019-05-24 16:21 | disposition home health service (06) | DRG 163 ==
LOC: EMEROOARM 09:24 → 2NENU 13:40 → SUATTDRO 13:40 → INTOOBSV 13:40 → 2NENU 14:23
PROVIDERS: ADMIT Internal Medicine; ATTEND Family Medicine

== ENCOUNTER 2019-08-09 23:37 | Inpatient (IN) ==
[2019-08-10 00:39] LABS: ABG Base Excess 0 mEq/L (-2 to 3); ABG HCO3 24 mEq/L (21-27); ABG Oxygen Saturation 95 % (95-98); ABG PCO2 40 mmHg (35-45); ABG PO2 75 mmHg (85-104); ABG TCO2 26 mEq/L (20-26)
[2019-08-10 01:26] LABS: Basophils % 0.2 %; Eosinophils % 0.1 %; Hematocrit 36.6 % (35.3-44.9); Hemoglobin 11.9 g/dL (11.5-15.4); Immature Granulocytes % 0.5 % (0-4); Lymphocytes # 0.6 K/mcL (0.6-4.6); Lymphocytes % 2.9 %; Mean Corpuscular HGB Conc 32.5 g/dL (31.6-35.5); Mean Corpuscular Volume 89.3 fL (83.0-100.0); Mean Platelet Volume 10.1 fL (9.4-12.4); Monocytes # 1.3 K/mcL (0.0-1.3); Monocytes % 6.8 %; Neutrophils # 17.5 K/mcL (1.6-8.9); Platelet Count 260 K/mcL (140-400); Red Cell Distribution Width 16.1 % (11.5-14.5); Segmented Neutrophils % 89.5 %; White Blood Count 19.6 K/mcL (4.3-11.1)
[2019-08-10 01:46] LABS: BUN/Creatinine Ratio 18 (6-26); Blood Urea Nitrogen 11 mg/dL (6-20); Calcium 8.7 mg/dL (8.6-10.3); Carbon Dioxide 21 mEq/L (23-29); Chloride 106 mEq/L (98-107); Glucose 111 mg/dL (70-105); Osmolality,Calculated 282 (280-300); Potassium 3.8 mEq/L (3.5-5.1); Sodium 136 mEq/L (136-145); eGFR For African Americans > 60 (> 60); eGFR For Non-African Americans > 60 (> 60)
[2019-08-10 01:47] LABS: Troponin I < 0.03 ng/mL (< 0.04)
[2019-08-10] MEDS ORDERED: methylPREDNISolone 125 MG/2 ML VIAL IVP ONE (03:29)
[2019-08-10] MEDS ORDERED: levoFLOXacin 750 MG/150 ML 750 MG/150 ML BAG IVPB ONE (03:31)
[2019-08-10] MEDS ORDERED: Acetaminophen 325 MG TABLET PO STA (04:09)
[2019-08-10] MEDS ORDERED: Naloxone 0.4 MG/ML INJ IVP PRN (08:49)
[2019-08-10] MEDS ORDERED: Ondansetron 4 MG/2 ML VIAL IVP PRN (08:49)
[2019-08-10] MEDS ORDERED: Benzonatate 100 MG CAPSULE PO PRN (10:17)
[2019-08-10] MEDS: Acetylcysteine 10% 2 ML INHSOL IH SCH ×3 (10:44→21:58)
[2019-08-10] MEDS: Ipratropium/Albuterol Neb 3 ML IH SCH ×3 (10:44→21:57)
[2019-08-10] MEDS: FLUoxetine 20 MG CAPSULE PO SCH (11:06)
[2019-08-10] MEDS: lamoTRIgine 100 MG TABLET PO SCH ×2 (11:06→21:35)
[2019-08-10] MEDS: Gabapentin 400 MG CAPSULE PO SCH ×3 (11:45→21:34)
[2019-08-10] MEDS: MethylPREDNISolone 40 MG/ML VIAL IVP SCH ×2 (11:45→16:43)
[2019-08-10 15:33] LABS: Adenovirus Not Detected (Not Detect); Bordetella Pertussis Not Detected (Not Detect); Chlamydophila pneumoniae Not Detected (Not Detect); Coronavirus 229E Not Detected (Not Detect); Coronavirus HKU1 Not Detected (Not Detect); Coronavirus NL63 Not Detected (Not Detect); Coronavirus OC43 Not Detected (Not Detect); Human Metapneumovirus Not Detected (Not Detect); Human Rhinovirus/Enterovirus Not Detected (Not Detect); Influenza A Subtype 2009 H1 Not Detected (Not Detect); Influenza B Not Detected (Not Detect); Parainfluenza Virus 1 Not Detected (Not Detect); Parainfluenza Virus 2 Not Detected (Not Detect); Parainfluenza Virus 3 Not Detected (Not Detect); Parainfluenza Virus 4 Not Detected (Not Detect); Respiratory Syncytial Virus Not Detected (Not Detect)
[2019-08-10 15:34] LABS: Mycoplasma pneumoniae Not Detected (Not Detect)
[2019-08-10] MEDS: *HR* Heparin 5,000 UNIT/ML VIAL SQ SCH (16:43)
[2019-08-10 17:26] LABS: Bilirubin,Urine Negative (Negative); Blood,Urine Negative (Negative); Clarity,Urine Clear (Clear); Color,Urine Yellow (Yellow); Glucose,Urine (UA) 250 mg/dL (Normal); Ketones,Urine Negative (Negative); Leukocyte Esterase,Urine Negative (Negative); Nitrite,Urine Negative (Negative); Protein,Urine Negative (Neg-Trace); Specific Gravity,Urine 1.018 (1.010-1.025); Urobilinogen,Urine Normal (Normal)
[2019-08-10] MEDS: traZODone 50 MG TABLET PO PRN (21:42)
[2019-08-11] MEDS: MethylPREDNISolone 40 MG/ML VIAL IVP SCH ×4 (01:11→16:25)
[2019-08-11] MEDS: Acetylcysteine 10% 2 ML INHSOL IH SCH ×4 (04:08→21:48)
[2019-08-11] MEDS: Ipratropium/Albuterol Neb 3 ML IH SCH ×4 (04:08→21:48)
[2019-08-11 05:35] LABS: Hematocrit 37.1 % (35.3-44.9); Hemoglobin 11.8 g/dL (11.5-15.4); Immature Granulocytes % 0.6 % (0-4); Lymphocytes # 0.9 K/mcL (0.6-4.6); Mean Corpuscular HGB Conc 31.8 g/dL (31.6-35.5); Mean Corpuscular Hemoglobin 28.5 pg (28.0-33.3); Mean Corpuscular Volume 89.6 fL (83.0-100.0); Mean Platelet Volume 10.9 fL (9.4-12.4); Monocytes # 1.4 K/mcL (0.0-1.3); Monocytes % 6.2 %; Neutrophils # 19.6 K/mcL (1.6-8.9); Platelet Count 286 K/mcL (140-400); Red Blood Count 4.14 M/mcL (3.82-4.97); Red Cell Distribution Width 16.2 % (11.5-14.5); Segmented Neutrophils % 89.2 %
[2019-08-11 05:39] LABS: INR 1.1; Prothrombin Time 12.3 Seconds (9.4-12.1)
[2019-08-11 05:58] LABS: Alanine Aminotransferase 15 Units/L (7-52); Albumin 3.5 g/dL (3.5-5.7); Albumin/Globulin Ratio 1.2 (1.1-2.2); Alkaline Phosphatase 93 Units/L (34-104); Aspartate Amino Transferase 19 Units/L (13-39); BUN/Creatinine Ratio 22 (6-26); Bilirubin,Total 0.3 mg/dL (0.3-1.0); Blood Urea Nitrogen 15 mg/dL (6-20); Calcium 9.6 mg/dL (8.6-10.3); Carbon Dioxide 24 mEq/L (23-29); Chloride 107 mEq/L (98-107); Chol/HDL Ratio 1.8 (0-4.9); Cholesterol 103 mg/dL (< 200); Glucose 114 mg/dL (70-105); HDL Cholesterol 56 mg/dL (40-59); LDL Cholesterol,Calculated 38 mg/dL (0-99); Osmolality,Calculated 294 (280-300); Potassium 4.7 mEq/L (3.5-5.1); Sodium 141 mEq/L (136-145); Total Protein 6.5 g/dL (6.4-8.9); Triglycerides 45 mg/dL (< 150); eGFR For African Americans > 60 (> 60); eGFR For Non-African Americans > 60 (> 60)
[2019-08-11] MEDS: *HR* Heparin 5,000 UNIT/ML VIAL SQ SCH ×2 (06:09→16:26)
[2019-08-11] MEDS: levoFLOXacin 750 MG/150 ML 750 MG/150 ML BAG IVPB SCH (07:40)
[2019-08-11] MEDS: Gabapentin 400 MG CAPSULE PO SCH ×4 (07:40→20:18)
[2019-08-11] MEDS: FLUoxetine 20 MG CAPSULE PO SCH (07:40)
[2019-08-11] MEDS: lamoTRIgine 100 MG TABLET PO SCH ×2 (07:40→20:19)
[2019-08-11] MEDS ORDERED: Aminoglycoside Consult 1 EACH MC ONE (07:53)
[2019-08-11] MEDS ORDERED: Lidocaine -MPF 2% 2 ML VIAL ONE (08:33)
[2019-08-11] MEDS ORDERED: Lidocaine -MPF 4% 5 ML AMPUL ONE (08:34)
[2019-08-11] MEDS ORDERED: *HR* FentaNYL (PF) 100 MCG/2 ML VIAL ONE (08:34)
[2019-08-11] MEDS ORDERED: Dexamethasone 4 MG/ML VIAL ONE (08:34)
[2019-08-11] MEDS ORDERED: Ondansetron 4 MG/2 ML VIAL ONE (08:34)
[2019-08-11] MEDS ORDERED: Propofol 500 MG/50 ML INFUS..BTL ONE (08:35)
[2019-08-11] MEDS ORDERED: *HR* Propofol 200 MG/20 ML VIAL IVP ONE (08:35)
[2019-08-11] MEDS ORDERED: *HR* Succinylcholine 200 MG/10 ML VIAL IVP ONE (08:35)
[2019-08-11] MEDS ORDERED: *HR* Rocuronium Bromide 50 MG/5 ML VIAL ONE (08:35)
[2019-08-11] MEDS ORDERED: Ipratropium/Albuterol Neb 3 ML IH ONE ×2 (08:55→09:32)
[2019-08-11] MEDS ORDERED: *HR* Midazolam HCl 2 MG/2 ML VIAL ONE ×2 (08:55→09:35)
[2019-08-11] MEDS ORDERED: Albuterol 2.5 MG/3 ML NEBULIZER ONE (08:55)
[2019-08-11] MEDS ORDERED: Albuterol 2.5 MG/3 ML NEBULIZER IH ONE (09:01)
[2019-08-11] MEDS: *HR* Midazolam HCl 2 MG/2 ML VIAL IVP PRN ×2 (09:35→09:40)
[2019-08-11] MEDS ORDERED: *HR* LORazepam 2 MG/ML VIAL IVP ONE ×3 (09:55→20:30)
[2019-08-11] MEDS ORDERED: *HR* LORazepam 2 MG/ML VIAL ONE (09:56)
[2019-08-11] MEDS ORDERED: *HR* LORazepam 1 MG TABLET PO ONE (12:31)
[2019-08-11] MEDS ORDERED: ALPRAZolam 1 MG TABLET PO ONE (14:45)
[2019-08-11] MEDS: *HR* LORazepam 1 MG TABLET PO PRN (20:18)
[2019-08-11 20:23] LABS: Appearance of Body Fluid Cloudy (Clear); Appearance of Body Fluid Hazy (Clear); Volume of Body Fluid 23 mL; Volume of Body Fluid 7 mL
[2019-08-11] MEDS ORDERED: Chloraseptic Spray 177 ML BOTTLE MM PRN (20:28)
[2019-08-12] MEDS: MethylPREDNISolone 40 MG/ML VIAL IVP SCH ×2 (01:31→07:26)
[2019-08-12] MEDS: *HR* LORazepam 1 MG TABLET PO PRN ×3 (03:53→18:53)
[2019-08-12] MEDS: Acetylcysteine 10% 2 ML INHSOL IH SCH ×4 (04:04→22:41)
[2019-08-12] MEDS: Ipratropium/Albuterol Neb 3 ML IH SCH ×4 (04:04→22:41)
[2019-08-12] MEDS: *HR* Heparin 5,000 UNIT/ML VIAL SQ SCH ×2 (06:37→16:55)
[2019-08-12] MEDS ORDERED: *HR* LORazepam 2 MG/ML VIAL IVP ONE ×3 (06:51→19:22)
[2019-08-12] MEDS: Gabapentin 400 MG CAPSULE PO SCH ×4 (07:25→19:42)
[2019-08-12] MEDS: lamoTRIgine 100 MG TABLET PO SCH ×2 (07:25→19:42)
[2019-08-12] MEDS: levoFLOXacin 750 MG/150 ML 750 MG/150 ML BAG IVPB SCH (07:26)
[2019-08-12] MEDS: FLUoxetine 20 MG CAPSULE PO SCH (07:26)
[2019-08-12] MEDS ORDERED: Furosemide 40 MG/4 ML VIAL IVP ONE (09:09)
[2019-08-12] MEDS ORDERED: *HR* LORazepam 2 MG/ML VIAL ONE ×2 (10:38→19:28)
[2019-08-12 15:11] LABS: Basophils % 0.1 %; Hematocrit 41.7 % (35.3-44.9); Hemoglobin 13.2 g/dL (11.5-15.4); Immature Granulocytes % 0.8 % (0-4); Lymphocytes # 0.5 K/mcL (0.6-4.6); Lymphocytes % 2.5 %; Mean Corpuscular HGB Conc 31.7 g/dL (31.6-35.5); Mean Corpuscular Volume 91.6 fL (83.0-100.0); Mean Platelet Volume 10.5 fL (9.4-12.4); Monocytes # 0.5 K/mcL (0.0-1.3); Monocytes % 2.4 %; Neutrophils # 18.8 K/mcL (1.6-8.9); Platelet Count 300 K/mcL (140-400); Red Blood Count 4.55 M/mcL (3.82-4.97); Red Cell Distribution Width 16.4 % (11.5-14.5); Segmented Neutrophils % 94.2 %
[2019-08-12 15:21] LABS: Alanine Aminotransferase 17 Units/L (7-52); Albumin 3.8 g/dL (3.5-5.7); Albumin/Globulin Ratio 1.3 (1.1-2.2); Alkaline Phosphatase 111 Units/L (34-104); Aspartate Amino Transferase 23 Units/L (13-39); BUN/Creatinine Ratio 17 (6-26); Bilirubin,Total 0.5 mg/dL (0.3-1.0); Blood Urea Nitrogen 14 mg/dL (6-20); Calcium 9.3 mg/dL (8.6-10.3); Carbon Dioxide 27 mEq/L (23-29); Chloride 96 mEq/L (98-107); Glucose 189 mg/dL (70-105); Osmolality,Calculated 288 (280-300); Potassium 4.1 mEq/L (3.5-5.1); Sodium 136 mEq/L (136-145); Total Protein 6.8 g/dL (6.4-8.9); eGFR For African Americans > 60 (> 60); eGFR For Non-African Americans > 60 (> 60)
[2019-08-12] MEDS ORDERED: 0.9 % Sodium Chloride 250 ML ONE (20:42)
[2019-08-13] MEDS ORDERED: *HR* Promethazine 25 MG/ML VIAL IVP ONE (02:20)
[2019-08-13] MEDS ORDERED: Haloperidol Lactate 5 MG/ML VIAL IVP ONE (02:20)
[2019-08-13] MEDS: Acetylcysteine 10% 2 ML INHSOL IH SCH ×4 (03:01→21:06)
[2019-08-13] MEDS: Ipratropium/Albuterol Neb 3 ML IH SCH ×4 (03:01→21:06)
[2019-08-13] MEDS: *HR* Heparin 5,000 UNIT/ML VIAL SQ SCH ×2 (05:30→16:10)
[2019-08-13] MEDS: Gabapentin 400 MG CAPSULE PO SCH ×4 (07:41→20:55)
[2019-08-13] MEDS: FLUoxetine 20 MG CAPSULE PO SCH (07:41)
[2019-08-13] MEDS: lamoTRIgine 100 MG TABLET PO SCH ×2 (07:41→20:55)
[2019-08-13] MEDS: levoFLOXacin 750 MG/150 ML 750 MG/150 ML BAG IVPB SCH (07:43)
[2019-08-13] MEDS: *HR* LORazepam 1 MG TABLET PO PRN (10:34)
[2019-08-13 12:34] LABS: Basophils % 0.2 %; Immature Granulocytes % 0.7 % (0-4); Lymphocytes # 1.1 K/mcL (0.6-4.6); Lymphocytes % 7.3 %; Mean Corpuscular HGB Conc 32.5 g/dL (31.6-35.5); Mean Corpuscular Hemoglobin 28.6 pg (28.0-33.3); Mean Corpuscular Volume 87.9 fL (83.0-100.0); Mean Platelet Volume 10.2 fL (9.4-12.4); Monocytes % 6.8 %; Neutrophils # 12.9 K/mcL (1.6-8.9); Platelet Count 336 K/mcL (140-400); Red Blood Count 4.55 M/mcL (3.82-4.97); White Blood Count 15.2 K/mcL (4.3-11.1)
[2019-08-13 12:54] LABS: Alanine Aminotransferase 14 Units/L (7-52); Albumin 3.5 g/dL (3.5-5.7); Albumin/Globulin Ratio 1.2 (1.1-2.2); Alkaline Phosphatase 99 Units/L (34-104); Aspartate Amino Transferase 14 Units/L (13-39); BUN/Creatinine Ratio 31 (6-26); Bilirubin,Total 0.4 mg/dL (0.3-1.0); Blood Urea Nitrogen 24 mg/dL (6-20); Carbon Dioxide 27 mEq/L (23-29); Chloride 99 mEq/L (98-107); Globulin 2.9 g/dL (2.4-3.5); Glucose 201 mg/dL (70-105); Osmolality,Calculated 290 (280-300); Potassium 3.5 mEq/L (3.5-5.1); Sodium 135 mEq/L (136-145); Total Protein 6.4 g/dL (6.4-8.9); eGFR For African Americans > 60 (> 60); eGFR For Non-African Americans > 60 (> 60)
[2019-08-13] MEDS: traZODone 50 MG TABLET PO PRN (20:56)
[2019-08-14 01:01] LABS: Basophils % 0.2 %; Hematocrit 37.1 % (35.3-44.9); Lymphocytes # 0.8 K/mcL (0.6-4.6); Lymphocytes % 5.6 %; Mean Corpuscular HGB Conc 32.3 g/dL (31.6-35.5); Mean Corpuscular Hemoglobin 28.4 pg (28.0-33.3); Mean Corpuscular Volume 87.9 fL (83.0-100.0); Mean Platelet Volume 10.1 fL (9.4-12.4); Monocytes # 0.7 K/mcL (0.0-1.3); Monocytes % 4.8 %; Neutrophils # 12.7 K/mcL (1.6-8.9); Platelet Count 320 K/mcL (140-400); Red Blood Count 4.22 M/mcL (3.82-4.97); Red Cell Distribution Width 15.8 % (11.5-14.5); Segmented Neutrophils % 88.4 %; White Blood Count 14.3 K/mcL (4.3-11.1)
[2019-08-14 01:23] LABS: Alanine Aminotransferase 14 Units/L (7-52); Albumin 3.2 g/dL (3.5-5.7); Albumin/Globulin Ratio 1.2 (1.1-2.2); Alkaline Phosphatase 88 Units/L (34-104); Aspartate Amino Transferase 10 Units/L (13-39); BUN/Creatinine Ratio 32 (6-26); Bilirubin,Total 0.3 mg/dL (0.3-1.0); Blood Urea Nitrogen 23 mg/dL (6-20); Calcium 8.8 mg/dL (8.6-10.3); Carbon Dioxide 31 mEq/L (23-29); Chloride 103 mEq/L (98-107); Globulin 2.6 g/dL (2.4-3.5); Glucose 143 mg/dL (70-105); Osmolality,Calculated 288 (280-300); Potassium 4.4 mEq/L (3.5-5.1); Sodium 136 mEq/L (136-145); Total Protein 5.8 g/dL (6.4-8.9); eGFR For African Americans > 60 (> 60); eGFR For Non-African Americans > 60 (> 60)
[2019-08-14] MEDS: Ipratropium/Albuterol Neb 3 ML IH SCH ×4 (03:43→21:32)
[2019-08-14] MEDS: Acetylcysteine 10% 2 ML INHSOL IH SCH ×4 (03:43→21:32)
[2019-08-14] MEDS: *HR* Heparin 5,000 UNIT/ML VIAL SQ SCH ×2 (03:44→16:25)
[2019-08-14] MEDS: FLUoxetine 20 MG CAPSULE PO SCH (08:59)
[2019-08-14] MEDS: Gabapentin 400 MG CAPSULE PO SCH ×4 (08:59→20:34)
[2019-08-14] MEDS: lamoTRIgine 100 MG TABLET PO SCH ×2 (08:59→20:34)
[2019-08-14] MEDS: levoFLOXacin 750 MG/150 ML 750 MG/150 ML BAG IVPB SCH (09:00)
[2019-08-14 17:40] LABS: BronchAsperGalactomannan Index 0.04; BronchAsperGalactomannan Index 0.05
[2019-08-14] MEDS ORDERED: Ondansetron 4 MG/2 ML VIAL IVP ONE (18:18)
[2019-08-14] MEDS ORDERED: *HR* Promethazine 25 MG/ML VIAL IVP PRN (18:25)
[2019-08-14 18:30] LABS: Influenza A PCR Body Fluid NOT DETECTED; Influenza B PCR Body Fluid NOT DETECTED; RVP Body Fluid Source BAL LUL; RVP Body Fluid Source BAL RML
[2019-08-14] MEDS: traZODone 50 MG TABLET PO PRN (20:33)
[2019-08-15] MEDS: Acetylcysteine 10% 2 ML INHSOL IH SCH ×4 (04:33→22:24)
[2019-08-15] MEDS: Ipratropium/Albuterol Neb 3 ML IH SCH ×4 (04:33→22:24)
[2019-08-15 04:55] LABS: Basophils % 0.2 %; Hematocrit 38.7 % (35.3-44.9); Hemoglobin 12.6 g/dL (11.5-15.4); Immature Granulocytes % 1.1 % (0-4); Lymphocytes # 0.6 K/mcL (0.6-4.6); Lymphocytes % 4.9 %; Mean Corpuscular HGB Conc 32.6 g/dL (31.6-35.5); Mean Corpuscular Hemoglobin 28.9 pg (28.0-33.3); Mean Corpuscular Volume 88.8 fL (83.0-100.0); Mean Platelet Volume 10.3 fL (9.4-12.4); Monocytes # 0.3 K/mcL (0.0-1.3); Monocytes % 2.5 %; Neutrophils # 11.3 K/mcL (1.6-8.9); Platelet Count 328 K/mcL (140-400); Red Blood Count 4.36 M/mcL (3.82-4.97); Red Cell Distribution Width 15.9 % (11.5-14.5); Segmented Neutrophils % 91.3 %; White Blood Count 12.3 K/mcL (4.3-11.1)
[2019-08-15 04:57] LABS: Alanine Aminotransferase 13 Units/L (7-52); Albumin 3.2 g/dL (3.5-5.7); Albumin/Globulin Ratio 1.2 (1.1-2.2); Alkaline Phosphatase 86 Units/L (34-104); Aspartate Amino Transferase 9 Units/L (13-39); BUN/Creatinine Ratio 30 (6-26); Bilirubin,Total 0.3 mg/dL (0.3-1.0); Blood Urea Nitrogen 20 mg/dL (6-20); Calcium 8.6 mg/dL (8.6-10.3); Carbon Dioxide 30 mEq/L (23-29); Chloride 102 mEq/L (98-107); Globulin 2.7 g/dL (2.4-3.5); Glucose 177 mg/dL (70-105); Osmolality,Calculated 295 (280-300); Sodium 139 mEq/L (136-145); Total Protein 5.9 g/dL (6.4-8.9); eGFR For African Americans > 60 (> 60); eGFR For Non-African Americans > 60 (> 60)
[2019-08-15] MEDS: *HR* Heparin 5,000 UNIT/ML VIAL SQ SCH ×2 (05:00→17:02)
[2019-08-15] MEDS: levoFLOXacin 750 MG/150 ML 750 MG/150 ML BAG IVPB SCH (08:13)
[2019-08-15] MEDS: predniSONE 20 MG TABLET PO SCH (08:15)
[2019-08-15] MEDS: FLUoxetine 20 MG CAPSULE PO SCH (08:15)
[2019-08-15] MEDS: lamoTRIgine 100 MG TABLET PO SCH ×2 (08:16→21:03)
[2019-08-15] MEDS: Gabapentin 400 MG CAPSULE PO SCH ×4 (08:16→21:03)
[2019-08-15] MEDS ORDERED: Ibuprofen 600 MG TABLET PO ONE ×2 (09:54→13:45)
[2019-08-15 10:13] LABS: RSV PCR Body Fluid NOT DETECTED
[2019-08-15 10:14] LABS: RSV PCR Body Fluid NOT DETECTED
[2019-08-15] MEDS: *HR* LORazepam 1 MG TABLET PO PRN (18:20)
[2019-08-15] MEDS: traZODone 50 MG TABLET PO PRN (21:05)
[2019-08-15 22:15] LABS: HSV Source BAL
[2019-08-16] MEDS: Acetylcysteine 10% 2 ML INHSOL IH SCH ×4 (03:30→21:13)
[2019-08-16] MEDS: Ipratropium/Albuterol Neb 3 ML IH SCH ×4 (03:30→21:13)
[2019-08-16] MEDS: *HR* Heparin 5,000 UNIT/ML VIAL SQ SCH ×2 (05:31→17:20)
[2019-08-16 06:16] LABS: Basophils # 0.1 K/mcL (0.0-0.2); Basophils % 0.5 %; Eosinophils # 0.2 K/mcL (0.0-0.6); Eosinophils % 1.8 %; Hematocrit 37.2 % (35.3-44.9); Immature Granulocytes % 2.1 % (0-4); Lymphocytes # 2.6 K/mcL (0.6-4.6); Lymphocytes % 18.7 %; Mean Corpuscular HGB Conc 32.3 g/dL (31.6-35.5); Mean Corpuscular Hemoglobin 28.2 pg (28.0-33.3); Mean Corpuscular Volume 87.5 fL (83.0-100.0); Mean Platelet Volume 9.9 fL (9.4-12.4); Monocytes # 1.7 K/mcL (0.0-1.3); Monocytes % 12.1 %; Neutrophils # 8.9 K/mcL (1.6-8.9); Platelet Count 329 K/mcL (140-400); Red Blood Count 4.25 M/mcL (3.82-4.97); Red Cell Distribution Width 15.9 % (11.5-14.5); Segmented Neutrophils % 64.8 %; White Blood Count 13.7 K/mcL (4.3-11.1)
[2019-08-16 06:42] LABS: Alanine Aminotransferase 12 Units/L (7-52); Albumin 2.9 g/dL (3.5-5.7); Albumin/Globulin Ratio 1.3 (1.1-2.2); Alkaline Phosphatase 77 Units/L (34-104); Aspartate Amino Transferase 12 Units/L (13-39); BUN/Creatinine Ratio 32 (6-26); Bilirubin,Total 0.3 mg/dL (0.3-1.0); Blood Urea Nitrogen 22 mg/dL (6-20); Calcium 8.5 mg/dL (8.6-10.3); Carbon Dioxide 30 mEq/L (23-29); Chloride 101 mEq/L (98-107); Globulin 2.3 g/dL (2.4-3.5); Glucose 86 mg/dL (70-105); Osmolality,Calculated 293 (280-300); Potassium 3.9 mEq/L (3.5-5.1); Sodium 140 mEq/L (136-145); Total Protein 5.2 g/dL (6.4-8.9); eGFR For African Americans > 60 (> 60); eGFR For Non-African Americans > 60 (> 60)
[2019-08-16] MEDS: *HR* LORazepam 1 MG TABLET PO PRN ×2 (09:08→18:40)
[2019-08-16] MEDS: FLUoxetine 20 MG CAPSULE PO SCH (09:08)
[2019-08-16] MEDS: lamoTRIgine 100 MG TABLET PO SCH ×2 (09:08→20:29)
[2019-08-16] MEDS: Gabapentin 400 MG CAPSULE PO SCH ×4 (09:08→20:29)
[2019-08-16] MEDS: predniSONE 20 MG TABLET PO SCH (09:08)
[2019-08-16] MEDS: levoFLOXacin 750 MG/150 ML 750 MG/150 ML BAG IVPB SCH (09:09)
[2019-08-16] MEDS ORDERED: Furosemide 40 MG/4 ML VIAL IVP ONE (12:49)
[2019-08-16] MEDS: traZODone 50 MG TABLET PO PRN (20:29)
[2019-08-16 20:33] LABS: HSV Source BAL
[2019-08-17 01:10] LABS: Basophils # 0.1 K/mcL (0.0-0.2); Basophils % 0.4 %; Eosinophils # 0.3 K/mcL (0.0-0.6); Eosinophils % 1.8 %; Hematocrit 36.7 % (35.3-44.9); Hemoglobin 11.8 g/dL (11.5-15.4); Immature Granulocytes % 2.7 % (0-4); Lymphocytes % 14.4 %; Mean Corpuscular HGB Conc 32.2 g/dL (31.6-35.5); Mean Corpuscular Hemoglobin 28.6 pg (28.0-33.3); Mean Corpuscular Volume 89.1 fL (83.0-100.0); Mean Platelet Volume 9.5 fL (9.4-12.4); Monocytes # 1.5 K/mcL (0.0-1.3); Monocytes % 10.9 %; Neutrophils # 9.8 K/mcL (1.6-8.9); Platelet Count 322 K/mcL (140-400); Red Blood Count 4.12 M/mcL (3.82-4.97); Red Cell Distribution Width 15.7 % (11.5-14.5); Segmented Neutrophils % 69.8 %
[2019-08-17 01:26] LABS: BUN/Creatinine Ratio 27 (6-26); Blood Urea Nitrogen 17 mg/dL (6-20); Calcium 8.3 mg/dL (8.6-10.3); Carbon Dioxide 35 mEq/L (23-29); Chloride 100 mEq/L (98-107); Glucose 74 mg/dL (70-105); Osmolality,Calculated 290 (280-300); Potassium 3.3 mEq/L (3.5-5.1); Sodium 140 mEq/L (136-145); eGFR For African Americans > 60 (> 60); eGFR For Non-African Americans > 60 (> 60)
[2019-08-17] MEDS: Acetylcysteine 10% 2 ML INHSOL IH SCH ×4 (03:44→23:02)
[2019-08-17] MEDS: Ipratropium/Albuterol Neb 3 ML IH SCH ×4 (03:44→23:02)
[2019-08-17] MEDS: *HR* Heparin 5,000 UNIT/ML VIAL SQ SCH ×2 (06:29→18:20)
[2019-08-17] MEDS ORDERED: Potassium Chloride Elixir 20 MEQ/15 ML UDC PO ONE (07:09)
[2019-08-17] MEDS: predniSONE 20 MG TABLET PO SCH (09:28)
[2019-08-17] MEDS: lamoTRIgine 100 MG TABLET PO SCH ×2 (09:28→20:35)
[2019-08-17] MEDS: FLUoxetine 20 MG CAPSULE PO SCH (09:28)
[2019-08-17] MEDS: levoFLOXacin 750 MG/150 ML 750 MG/150 ML BAG IVPB SCH (09:29)
[2019-08-17] MEDS: Gabapentin 400 MG CAPSULE PO SCH ×4 (09:30→20:35)
[2019-08-17 14:24] LABS: Rheumatoid Factor < 10 IU/mL (Less than 14)
[2019-08-17 15:21] LABS: Hepatitis B Surface Antigen Nonreactive (Nonreactive)
[2019-08-17 15:50] LABS: Hepatitis C Virus Antibody Nonreactive (Nonreactive)
[2019-08-17] MEDS ORDERED: *HR* HYDROcodone/Acet 5/325 mg TABLET PO ONE (19:43)
[2019-08-17] MEDS: *HR* LORazepam 1 MG TABLET PO PRN (21:52)
[2019-08-17] MEDS: traZODone 50 MG TABLET PO PRN (23:00)
[2019-08-18 02:13] LABS: Basophils # 0.1 K/mcL (0.0-0.2); Basophils % 0.5 %; Eosinophils # 0.2 K/mcL (0.0-0.6); Eosinophils % 1.8 %; Hematocrit 36.4 % (35.3-44.9); Hemoglobin 11.8 g/dL (11.5-15.4); Immature Granulocytes % 3.5 % (0-4); Lymphocytes # 1.9 K/mcL (0.6-4.6); Lymphocytes % 16.6 %; Mean Corpuscular HGB Conc 32.4 g/dL (31.6-35.5); Mean Corpuscular Hemoglobin 28.4 pg (28.0-33.3); Mean Corpuscular Volume 87.7 fL (83.0-100.0); Mean Platelet Volume 9.7 fL (9.4-12.4); Monocytes # 1.1 K/mcL (0.0-1.3); Monocytes % 9.4 %; Platelet Count 357 K/mcL (140-400); Red Blood Count 4.15 M/mcL (3.82-4.97); Red Cell Distribution Width 15.6 % (11.5-14.5); Segmented Neutrophils % 68.2 %; White Blood Count 11.7 K/mcL (4.3-11.1)
[2019-08-18 02:30] LABS: BUN/Creatinine Ratio 20 (6-26); Blood Urea Nitrogen 15 mg/dL (6-20); Calcium 8.5 mg/dL (8.6-10.3); Carbon Dioxide 35 mEq/L (23-29); Chloride 101 mEq/L (98-107); Glucose 91 mg/dL (70-105); Osmolality,Calculated 294 (280-300); Potassium 3.8 mEq/L (3.5-5.1); Sodium 142 mEq/L (136-145); eGFR For African Americans > 60 (> 60); eGFR For Non-African Americans > 60 (> 60)
[2019-08-18] MEDS: Acetylcysteine 10% 2 ML INHSOL IH SCH ×4 (04:22→22:30)
[2019-08-18] MEDS: Ipratropium/Albuterol Neb 3 ML IH SCH ×4 (04:22→22:30)
[2019-08-18] MEDS: *HR* Heparin 5,000 UNIT/ML VIAL SQ SCH ×2 (07:19→16:57)
[2019-08-18] MEDS: lamoTRIgine 100 MG TABLET PO SCH ×2 (08:31→19:45)
[2019-08-18] MEDS: FLUoxetine 20 MG CAPSULE PO SCH (08:31)
[2019-08-18] MEDS: predniSONE 20 MG TABLET PO SCH (08:31)
[2019-08-18] MEDS: Gabapentin 400 MG CAPSULE PO SCH ×4 (08:31→19:45)
[2019-08-18] MEDS: *HR* HYDROcodone/Acet 5/325 mg TABLET PO PRN ×2 (12:31→18:36)
[2019-08-18] MEDS: traZODone 50 MG TABLET PO PRN (21:08)
[2019-08-19] MEDS: *HR* HYDROcodone/Acet 5/325 mg TABLET PO PRN ×3 (03:22→17:35)
[2019-08-19] MEDS: Acetylcysteine 10% 2 ML INHSOL IH SCH ×4 (04:14→21:19)
[2019-08-19] MEDS: Ipratropium/Albuterol Neb 3 ML IH SCH ×4 (04:14→21:19)
[2019-08-19 05:26] LABS: Basophils # 0.1 K/mcL (0.0-0.2); Basophils % 0.7 %; Eosinophils # 0.3 K/mcL (0.0-0.6); Eosinophils % 2.1 %; Hematocrit 40.2 % (35.3-44.9); Hemoglobin 12.5 g/dL (11.5-15.4); Immature Granulocytes % 3.4 % (0-4); Lymphocytes # 2.9 K/mcL (0.6-4.6); Lymphocytes % 20.4 %; Mean Corpuscular HGB Conc 31.1 g/dL (31.6-35.5); Mean Corpuscular Hemoglobin 28.5 pg (28.0-33.3); Mean Corpuscular Volume 91.6 fL (83.0-100.0); Mean Platelet Volume 9.5 fL (9.4-12.4); Monocytes % 6.9 %; Neutrophils # 9.4 K/mcL (1.6-8.9); Platelet Count 323 K/mcL (140-400); Red Blood Count 4.39 M/mcL (3.82-4.97); Red Cell Distribution Width 15.9 % (11.5-14.5); Segmented Neutrophils % 66.5 %; White Blood Count 14.2 K/mcL (4.3-11.1)
[2019-08-19 05:41] LABS: BUN/Creatinine Ratio 22 (6-26); Blood Urea Nitrogen 16 mg/dL (6-20); Calcium 8.8 mg/dL (8.6-10.3); Carbon Dioxide 30 mEq/L (23-29); Chloride 101 mEq/L (98-107); Glucose 69 mg/dL (70-105); Osmolality,Calculated 288 (280-300); Sodium 139 mEq/L (136-145); eGFR For African Americans > 60 (> 60); eGFR For Non-African Americans > 60 (> 60)
[2019-08-19] MEDS: *HR* Heparin 5,000 UNIT/ML VIAL SQ SCH ×2 (06:35→17:37)
[2019-08-19] MEDS: predniSONE 20 MG TABLET PO SCH (07:55)
[2019-08-19] MEDS: Gabapentin 400 MG CAPSULE PO SCH ×3 (07:55→20:38)
[2019-08-19] MEDS: lamoTRIgine 100 MG TABLET PO SCH ×2 (07:55→20:59)
[2019-08-19] MEDS: FLUoxetine 20 MG CAPSULE PO SCH (07:55)
[2019-08-19] MEDS ORDERED: *HR* Dextrose 50 % in Water (Syg) 50 ML SYRINGE IVP PRN ×2 (12:46→15:57)
[2019-08-19] MEDS ORDERED: Dextrose Gel 15 GM/37.5 ML TUBE PO PRN ×4 (12:46→15:57)
[2019-08-19] MEDS ORDERED: D5% in Water 1,000 ML IVC PRN ×2 (12:46→15:57)
[2019-08-19 15:14] LABS: Hepatitis B Core Ab Total POSITIVE (Negative)
[2019-08-19] MEDS ORDERED: Benzonatate 100 MG CAPSULE PO PRN (17:10)
[2019-08-19] MEDS ORDERED: Chloraseptic Spray 177 ML BOTTLE MM PRN (17:12)
[2019-08-19] MEDS: *HR* LORazepam 1 MG TABLET PO PRN ×2 (20:37→21:44)
[2019-08-19] MEDS ORDERED: traZODone 50 MG TABLET PO PRN (21:00)
[2019-08-19 23:42] LABS: QuantiFERON Mitogen minus NIL 4.47 IU/mL
[2019-08-20] MEDS: *HR* HYDROcodone/Acet 5/325 mg TABLET PO PRN ×3 (03:36→18:01)
[2019-08-20] MEDS: Ipratropium/Albuterol Neb 3 ML IH SCH ×3 (03:53→15:59)
[2019-08-20] MEDS: Acetylcysteine 10% 2 ML INHSOL IH SCH ×3 (03:53→15:59)
[2019-08-20] MEDS: *HR* Heparin 5,000 UNIT/ML VIAL SQ SCH ×2 (05:44→18:03)
[2019-08-20] MEDS: lamoTRIgine 100 MG TABLET PO SCH (08:24)
[2019-08-20] MEDS: Gabapentin 400 MG CAPSULE PO SCH ×3 (08:25→18:03)
[2019-08-20] MEDS ORDERED: FLUoxetine 20 MG CAPSULE PO SCH (09:00)
[2019-08-20] MEDS ORDERED: predniSONE 20 MG TABLET PO SCH (09:00)
[2019-08-20] MEDS ORDERED: Ipratropium/Albuterol Neb 3 ML IH ONE (12:31)
[2019-08-20 14:10] LABS: Aldolase, Serum 8.6 U/L (1.5-8.1); QuantiFERON NIL 0.01 IU/mL; QuantiFERON-TB Gold In-Tube NEGATIVE
[2019-08-20 16:32] VITALS: BP 119/77
== END 2019-08-20 21:16 | disposition short-term general hospital (02) | DRG 196 ==
LOC: CDU 23:37 → EMEROOARM 23:37 → SUATTDRO 08-10 05:43 → CDU 08-10 06:16 → 2NNU 08-10 12:10 → SUATTDRO 08-11 11:24 → CDU 08-19 14:48
PROVIDERS: ADMIT Family Medicine; ATTEND Internal Medicine